=== PATIENT | male | born 1960 | race Caucasian/White ===

== ENCOUNTER 2019-02-25 21:45 | Inpatient (IN) ==
[2019-02-25] MEDS ORDERED: Haloperidol Lactate 5 MG/ML VIAL IM ONE (22:00)
[2019-02-25] MEDS ORDERED: *HR* LORazepam 2 MG/ML VIAL IM ONE (22:01)
[2019-02-25 22:35] LABS: Basophils % 0.1 %; Hematocrit 39.3 % (37.5-50.1); Hemoglobin 13.7 g/dL (12.9-16.9); Immature Granulocytes % 0.5 % (0-4); Lymphocytes # 1.8 K/mcL (0.6-4.6); Lymphocytes % 11.2 %; Mean Corpuscular HGB Conc 34.9 g/dL (31.6-35.5); Mean Corpuscular Hemoglobin 34.1 pg (28.0-33.3); Mean Corpuscular Volume 97.8 fL (83.0-100.0); Mean Platelet Volume 10.4 fL (9.4-12.4); Monocytes # 0.9 K/mcL (0.0-1.3); Monocytes % 5.8 %; Platelet Count 216 K/mcL (140-400); Red Blood Count 4.02 M/mcL (4.19-5.50); Red Cell Distribution Width 12.8 % (11.5-14.5); Segmented Neutrophils % 82.4 %; White Blood Count 15.7 K/mcL (4.3-11.1)
--- NOTE | 2019-02-25 22:45 | Emergency Department Note ---
Disposition Clinical Impression: NSTEMI (non-ST elevated myocardial infarction), Shock Rhabdomyolysis Qualifiers: Rhabdomyolysis type: non-traumatic Qualified Code(s): M62.82 - Rhabdomyolysis Acute renal failure Qualifiers: Acute renal failure type: with acute tubular necrosis Qualified Code(s): N17.0 - Acute kidney failure with tubular necrosis Disposition: Admitted As Inpatient Condition: Critical Referrals: NONE,PCP [Primary Care Provider] - Forms: ED Satisfaction Letter Time of Disposition: 01:29 Psych HPI - General Chief Complaint: ED Psychiatric Symptoms Stated Complaint: Psych Eval / drug use Time Seen by Provider: 02/25/19 21:46 Source: EMS Nursing Notes Reviewed: Yes Vital Signs Reviewed: Yes - History of Present Illness HPI Narrative: 59-year-old male presents emergency department for concern for talking out of his head per family. Patient has made the people around him feel unsafe at home due to the fact that his mental status being different. No known history of any psychiatric illnesses per EMS who brought him in. Patient denies any history of psychiatric illness. He does use methamphetamines. Is not taking anything recently. There was concern that patient was found next to a [place]. Patient s tated that he was exiting a [place] because he did not have anywhere to go. He does endorse some chest pain that happened 2 days ago, but nothing currently. No history of heart attack in the past. Patient denies any fevers, abdominal pain, shortness of breath. - Related Data Home Medications Medication Instructions Recorded Confirmed Elavil 02/25/19 02/25/19 Gabapentin PO 02/25/19 Lisinopril 02/25/19 02/25/19 Allergies Allergy/AdvReac Type Severity Reaction Status Date / Time No Known Allergies Allergy Verified 02/25/19 21:52 All systems ED: reviewed and negative except as stated. Review of Systems: As Per HPI Constitutional: Denies: fever Cardiovascular: Denies: chest pain Respiratory: Denies: cough, dyspnea Gastrointestinal: Reports: other (No rectal discomfort). Denies: abdominal pain, nausea, vomiting Genitourinary: Denies: urgency, dysuria, frequency Musculoskeletal: Denies: back pain Past Medical History - Past Medical History Attestation: Yes The following information was validated with the patient. Medical history: Reports: hypertension Psychiatric history: Reports: no psych history - Social History Smoking Status: Current every day smoker Smokeless Tobacco Status: No Drug use: Reports: marijuana Physical Exam - General Limitations: no limitations, other (Disheveled-appearing male) General appearance: alert - Head Head exam: normocephalic - Eye Eye exam: Present: EOMI - ENT ENT exam: mucous membranes dry - Neck Neck exam: Present: full ROM - Chest Chest inspection: Present: symmetric chest wall rise - Respiratory Respiratory exam: Present: normal lung sounds bilaterally. Absent: respiratory distress, accessory muscle use - Cardiovascular Cardiovascular exam: Present: regular rate, normal rhythm, normal heart sounds - Abdominal Exam Abdominal exam: Present: soft, Non-Tender. Absent: distention, guarding, rebound, rigidity - Extremities Exam Extremities exam: Present: normal capillary refill - Back Exam Back exam: Present: full ROM - Neurological Exam Neurological exam: Present: alert, other (Patient with no focal neurologic deficits, GCS 15) - Psychiatric Psychiatric exam: Present: normal affect, normal mood - Skin Skin exam: Present: warm, dry, intact Course Vital Signs Temperature 97.8 F 02/25/19 21:52 Pulse Rate 90 02/25/19 21:52 Respiratory Rate 20 02/25/19 21:52 Blood Pressure 105/60 02/25/19 21:52 O2 Sat by Pulse Oximetry 98 02/25/19 21:52 Temperature 97.8 F 02/25/19 21:52 Pulse Rate 88 02/26/19 01:06 Respiratory Rate 20 02/26/19 01:06 Blood Pressure 90/48 02/26/19 01:06 O2 Sat by Pulse Oximetry 100 02/26/19 01:06 Oxygen Delivery Oxygen Delivery Simple Mask Psych - MDM Narrative Medical decision making narrative: 59-year-old male presents emergency Department concern for being disheveled and altered per family. Family not at bedside, obtaining reports only from EMS. Patient with no complaints initially. Creatinine elevated at 4.5. Creatinine kinase elevated as well. Patient in mild rhabdomyolysis. Given 3 L of fluids in the emergency department. CTs reveal possible rectal wall thickening circumferentially, but patient not complaining of any rectal discomfort. Low suspicion for this at this time. Patient's blood pressure started to drop after his time here in the emergency department despite fluid administration. At that time, it was decided to place central line. Right internal jugular central venous catheter was placed. Chest x-ray post central line placement showed good placement, however, there was evidence of bilateral pulmonary vascular congestion concerning for edema. We started Levophed at that time. Patient to be admitted to the intensive care unit for further management. We discussed antimicrobial management, but not finding a source of infection at this time. Patient does have leukocytosis, however, there are multiple reasons to explain this as patient has several acute processes going on with his acute renal failure secondary to rhabdomyolysis as well as a possible recent and STEMI the could place a cardiogenic component to his shock as well. The ICU team will be monitoring the patient closely and will start antibiotics if they deem this necessary. Patient critical at time of admission, but mentating appropriately. Pertaining his airway at that time. Head CT 02/25/19 21:58 IMPRESSION: No acute intracranial abnormality. D/ / Bartolo Torres / Bartolo Torres Interpreting Provider: Bartolo Torres Abdomen/Pelvis CT 02/25/19 23:13 IMPRESSION: Rectal wall thickening circumferentially. Please correlate for symptoms of proctitis. Hepatic cirrhosis. No evidence of renal collecting system dilatation. Cholelithiasis and biliary sludge without evidence of cholecystitis. D/ / Bartolo Torres / Bartolo Torres Interpreting Provider: Bartolo Torres Chest X-Ray 02/26/19 00:57 IMPRESSION: Tip of the right internal jugular venous catheter in the lower SVC. No pneumothorax. Either patchy bilateral pneumonia present or moderate pulmonary vascular congestion. D/ / Jere Mccabe MD / Jere Mccabe MD Interpreting Provider: Jere Mccabe MD - Lab Data Result diagrams: 02/25/19 22:06 02/25/19 22:06 Lab Results 02/25/19 02/25/19 02/25/19 Range/Units 22:06 22:06 22:06 WBC 15.7 H (4.3-11.1) K/mcL RBC 4.02 L (4.19-5.50) M/mcL Hgb 13.7 (12.9-16.9) g/dL Hct 39.3 (37.5-50.1) % MCV 97.8 (83.0-100.0) fL MCH 34.1 H (28.0-33.3) pg MCHC 34.9 (31.6-35.5) g/dL RDW 12.8 (11.5-14.5) % Plt Count 216 (140-400) K/mcL MPV 10.4 (9.4-12.4) fL Immature Gran % 0.5 (0-4) % Seg Neutrophils % 82.4 % Lymphocytes % 11.2 % Monocytes % 5.8 % Eosinophils % 0.0 % Basophils % 0.1 % Neutrophils # 13.0 H (1.6-8.9) K/mcL Lymphocytes # 1.8 (0.6-4.6) K/mcL Monocytes # 0.9 (0.0-1.3) K/mcL Eosinophils # 0.0 (0.0-0.6) K/mcL Basophils # 0.0 (0.0-0.2) K/mcL Sodium 132 L (136-145) mEq/L Potassium 4.5 (3.5-5.1) mEq/L Chloride 97 L (98-107) mEq/L Carbon Dioxide 14 L (23-29) mEq/L BUN 86 H (6-20) mg/dL Creatinine 4.51 H (0.70-1.30) mg/dL Est GFR ( Amer) 16 L (> 60) Est GFR (Non-Af Amer) 13 L (> 60) BUN/Creatinine Ratio 19 (6-26) Glucose 82 (70-105) mg/dL Calculated Osmolality 299 (280-300) Calcium 9.2 (8.6-10.3) mg/dL Creatine Kinase 2984 H (30-223) Units/L Troponin I 0.71 H* (< 0.04) ng/mL TSH 0.465 (0.340-5.600) mcIU/mL Urine Color (Yellow) Urine Clarity (Clear) Urine pH (5.0-8.0) pH Units Ur Specific [place] (1.010-1.025) Urine Protein (Neg-Trace) mg/dL Urine Glucose (UA) (Normal) mg/dL Urine Ketones (Negative) mg/dL Urine Blood (Negative) Urine Nitrite (Negative) Urine Bilirubin (Negative) Urine Urobilinogen (Normal) mg/dL Ur Leukocyte Esterase (Negative) Urine Microscopic RBC (0-3) per hpf Urine Microscopic WBC (0-3) per hpf Ur Squamous Epith Cells (None-Few) per lpf Urine Bacteria (None-Few) per hpf Salicylates < 2.5 L (15.0-30.0) mg/dL Urine Opiates Screen (Jmkjrd=656) ng/mL Ur Buprenorphine Scrn (Cutoff=5) ng/mL Acetaminophen < 10 L (10-20) mcg/mL Ur Barbiturates Screen (Xyusrd=968) ng/mL Ur Phencyclidine Scrn (Cutoff=25) ng/mL Ur Amphetamines Screen (Zefygf=2194) ng/mL U Benzodiazepines Scrn (Mgkays=959) ng/mL Urine Cocaine Screen (Cutoff= 300) ng/mL U Marijuana (THC) Screen (Cutoff = 50) ng/mL Ur Drug Screen Interp Ethyl Alcohol < 10 (Less than 10) mg/dL 02/25/19 02/25/19 Range/Units 23:41 23:41 WBC (4.3-11.1) K/mcL RBC (4.19-5.50) M/mcL Hgb (12.9-16.9) g/dL Hct (37.5-50.1) % MCV (83.0-100.0) fL MCH (28.0-33.3) pg MCHC (31.6-35.5) g/dL RDW (11.5-14.5) % Plt Count (140-400) K/mcL MPV (9.4-12.4) fL Immature Gran % (0-4) % Seg Neutrophils % % Lymphocytes % % Monocytes % % Eosinophils % % Basophils % % Neutrophils # (1.6-8.9) K/mcL Lymphocytes # (0.6-4.6) K/mcL Monocytes # (0.0-1.3) K/mcL Eosinophils # (0.0-0.6) K/mcL Basophils # (0.0-0.2) K/mcL Sodium (136-145) mEq/L Potassium (3.5-5.1) mEq/L Chloride (98-107) mEq/L Carbon Dioxide (23-29) mEq/L BUN (6-20) mg/dL Creatinine (0.70-1.30) mg/dL Est GFR ( Amer) (> 60) Est GFR (Non-Af Amer) (> 60) BUN/Creatinine Ratio (6-26) Glucose (70-105) mg/dL Calculated Osmolality (280-300) Calcium (8.6-10.3) mg/dL Creatine Kinase (30-223) Units/L Troponin I (< 0.04) ng/mL TSH (0.340-5.600) mcIU/mL Urine Color Dark Yellow (Yellow) Urine Clarity Cloudy A (Clear) Urine pH 5.0 (5.0-8.0) pH Units Ur Specific [place] 1.026 H (1.010-1.025) Urine Protein 30 H (Neg-Trace) mg/dL Urine Glucose (UA) Normal (Normal) mg/dL Urine Ketones Trace H (Negative) mg/dL Urine Blood Large H (Negative) Urine Nitrite Negative (Negative) Urine Bilirubin Moderate H (Negative) Urine Urobilinogen Normal (Normal) mg/dL Ur Leukocyte Esterase Trace H (Negative) Urine Microscopic RBC 5-15 H (0-3) per hpf Urine Microscopic WBC 0-3 (0-3) per hpf Ur Squamous Epith Cells Many H (None-Few) per lpf Urine Bacteria None Seen (None-Few) per hpf Salicylates (15.0-30.0) mg/dL Urine Opiates Screen Negative (Ctxook=605) ng/mL Ur Buprenorphine Scrn Positive H (Cutoff=5) ng/mL Acetaminophen (10-20) mcg/mL Ur Barbiturates Screen Negative (Yddgce=249) ng/mL Ur Phencyclidine Scrn Negative (Cutoff=25) ng/mL Ur Amphetamines Screen Positive H (Kagmla=1848) ng/mL U Benzodiazepines Scrn Negative (Arpjwq=728) ng/mL Urine Cocaine Screen Negative (Cutoff= 300) ng/mL U Marijuana (THC) Screen Positive H (Cutoff = 50) ng/mL Ur Drug Screen Interp See Below Ethyl Alcohol (Less than 10) mg/dL - EKG Data EKG attestation: Yes I reviewed and interpreted this EKG. EKG results narrative: 22:29 Heart rate 83 bpm, TN interval 146 ms, QRS duration 83 ms, QT 384 ms, normal axis. Sinus rhythm with nonspecific T-wave flattening in lead 3. Psychiatric Medical Clearance - Medical Clearance Checklist Medical History: No Social History Section defined Current Vitals: Last Vital Signs Temp 97.8 F 02/25/19 21:52 Pulse 88 02/26/19 01:06 Resp 20 02/26/19 01:06 BP 90/48 02/26/19 01:06 Pulse Ox 100 02/26/19 01:06 Psychiatric Lab Panel: Drug Levels and Toxicity 02/25/19 02/25/19 22:06 23:41 Urine Opiates Screen Negative Acetaminophen < 10 L Ur Barbiturates Screen Negative Ur Phencyclidine Scrn Negative Ur Amphetamines Screen Positive H U Benzodiazepines Scrn Negative Urine Cocaine Screen Negative U Marijuana (THC) Screen Positive H Ethyl Alcohol < 10 Abnormal Labs: Abnormal lab results WBC 15.7 K/mcL (4.3-11.1) H 02/25/19 22:06 RBC 4.02 M/mcL (4.19-5.50) L 02/25/19 22:06 MCH 34.1 pg (28.0-33.3) H 02/25/19 22:06 Neutrophils # 13.0 K/mcL (1.6-8.9) H 02/25/19 22:06 Sodium 132 mEq/L (136-145) L 02/25/19 22:06 Chloride 97 mEq/L (98-107) L 02/25/19 22:06 Carbon Dioxide 14 mEq/L (23-29) L 02/25/19 22:06 BUN 86 mg/dL (6-20) H 02/25/19 22:06 Creatinine 4.51 mg/dL (0.70-1.30) H 02/25/19 22:06 Est GFR ( Amer) 16 (> 60) L 02/25/19 22:06 Est GFR (Non-Af Amer) 13 (> 60) L 02/25/19 22:06 Creatine Kinase 2984 Units/L (30-223) H 02/25/19 22:06 Troponin I 0.71 ng/mL (< 0.04) H* 02/25/19 22:06 Urine Clarity Cloudy (Clear) A 02/25/19 23:41 Ur Specific [place] 1.026 (1.010-1.025) H 02/25/19 23:41 Urine Protein 30 mg/dL (Neg-Trace) H 02/25/19 23:41 Urine Ketones Trace mg/dL (Negative) H 02/25/19 23:41 Urine Blood Large (Negative) H 02/25/19 23:41 Urine Bilirubin Moderate (Negative) H 02/25/19 23:41 Ur Leukocyte Esterase Trace (Negative) H 02/25/19 23:41 Urine Microscopic RBC 5-15 per hpf (0-3) H 02/25/19 23:41 Ur Squamous Epith Cells Many per lpf (None-Few) H 02/25/19 23:41 Salicylates < 2.5 mg/dL (15.0-30.0) L 02/25/19 22:06 Ur Buprenorphine Scrn Positive ng/mL (Cutoff=5) H 02/25/19 23:41 Acetaminophen < 10 mcg/mL (10-20) L 02/25/19 22:06 Ur Amphetamines Screen Positive ng/mL (Hpjzxj=6428) H 02/25/19 23:41 U Marijuana (THC) Screen Positive ng/mL (Cutoff = 50) H 02/25/19 23:41 Statement of Medical Clearance: I have evaluated the patient, reviewed diagnostic information, and certify that the patient's medical condition is sufficiently stable that transfer to the psychiatric unit does not pose a significant risk of deterioration.
[2019-02-25 23:00] LABS: Acetaminophen < 10 mcg/mL (10-20); Ethanol < 10 mg/dL (Less than 10); Salicylate < 2.5 mg/dL (15.0-30.0)
[2019-02-25 23:01] LABS: BUN/Creatinine Ratio 19 (6-26); Blood Urea Nitrogen 86 mg/dL (6-20); Calcium 9.2 mg/dL (8.6-10.3); Carbon Dioxide 14 mEq/L (23-29); Chloride 97 mEq/L (98-107); Glucose 82 mg/dL (70-105); Osmolality,Calculated 299 (280-300); Potassium 4.5 mEq/L (3.5-5.1); Sodium 132 mEq/L (136-145); eGFR For African Americans 16 (> 60); eGFR For Non-African Americans 13 (> 60)
[2019-02-25] MEDS ORDERED: 0.9 % Sodium Chloride 1,000 ML IVC ONE ×3 (23:11→23:42)
[2019-02-25 23:22] LABS: Creatine Kinase 2984 Units/L (30-223)
[2019-02-25 23:57] LABS: Bilirubin,Urine Moderate (Negative); Blood,Urine Large (Negative); Clarity,Urine Cloudy (Clear); Color,Urine Dark Yellow (Yellow); Glucose,Urine (UA) Normal (Normal); Ketones,Urine Trace mg/dL (Negative); Leukocyte Esterase,Urine Trace (Negative); Nitrite,Urine Negative (Negative); Protein,Urine 30 mg/dL (Neg-Trace); Specific Gravity,Urine 1.026 (1.010-1.025); Urobilinogen,Urine Normal (Normal)
[2019-02-26 00:02] LABS: Bacteria,Urine None Seen per hpf (None-Few); Squamous Epithelial Cell,Urine Many per lpf (None-Few); WBC,Urine 0-3 per hpf (0-3)
[2019-02-26 00:13] LABS: Troponin I 0.71 ng/mL (< 0.04)
[2019-02-26 00:13] LABS: Amphetamine Screen,Urine Positive ng/mL (Cutoff=1000); Barbiturate Screen,Urine Negative ng/mL (Cutoff=200); Benzodiazepines Screen,Urine Negative ng/mL (Cutoff=200); Cannabinoid Screen,Urine Positive ng/mL (Cutoff = 50); Cocaine Screen,Urine Negative ng/mL (Cutoff= 300); Opiate Screen,Urine Negative ng/mL (Cutoff=300); Phencyclidine Screen,Urine Negative ng/mL (Cutoff=25)
--- NOTE | 2019-02-26 00:17 | Emergency Department Note ---
Disposition Clinical Impression: Elevated troponin Rhabdomyolysis Qualifiers: Rhabdomyolysis type: non-traumatic Qualified Code(s): M62.82 - Rhabdomyolysis Acute renal failure Qualifiers: Acute renal failure type: with acute tubular necrosis Qualified Code(s): N17.0 - Acute kidney failure with tubular necrosis Disposition: Admitted As Inpatient Condition: Fair Referrals: NONE,PCP [Primary Care Provider] - Forms: ED Satisfaction Letter Time of Disposition: 00:18 General Adult HPI - General Chief complaint: ED Psychiatric Symptoms Stated complaint: Psych Eval / drug use Time Seen by Provider: 02/25/19 21:46 Source: EMS Limitations: no limitations, other (Disheveled-appearing male) - History of Present Illness Pain Scale: 0 - Related Data Home Medications Medication Instructions Recorded Confirmed Elavil 02/25/19 02/25/19 Gabapentin PO 02/25/19 Lisinopril 02/25/19 02/25/19 Allergies Allergy/AdvReac Type Severity Reaction Status Date / Time No Known Allergies Allergy Verified 02/25/19 21:52 Constitutional: Denies: fever Cardiovascular: Denies: chest pain Respiratory: Denies: cough, dyspnea Gastrointestinal: Denies: abdominal pain, nausea, vomiting Genitourinary: Denies: urgency, dysuria, frequency Musculoskeletal: Denies: back pain Past Medical History - Past Medical History Medical history: Reports: hypertension Psychiatric history: Reports: no psych history - Social History Smoking Status: Current every day smoker Smokeless Tobacco Status: No Drug use: Reports: marijuana Physical Exam - General Limitations: no limitations, other (Disheveled-appearing male) General appearance: alert Course - Consultations Consultation #1: discussed case with Dr. Churchill and does not have a recommendation for heparin vs no heparin. If his hemoglobin is stable and has no active bleed and is in his 50s than does not see an iminant danger for starting heparin. WE will trest with heparin Time: 00:51 Vital Signs Temperature 97.8 F 02/25/19 21:52 Pulse Rate 90 02/25/19 21:52 Respiratory Rate 20 02/25/19 21:52 Blood Pressure 105/60 02/25/19 21:52 O2 Sat by Pulse Oximetry 98 02/25/19 21:52 Temperature 97.8 F 02/25/19 21:52 Pulse Rate 88 02/26/19 00:47 Respiratory Rate 02/26/19 00:47 Blood Pressure 68/49 02/26/19 00:47 O2 Sat by Pulse Oximetry 94 02/26/19 00:47 Oxygen Delivery Oxygen Delivery Simple Mask Medical Decision Making - Lab Data Result diagrams: 02/25/19 22:06 02/25/19 22:06 Lab Results 02/25/19 02/25/19 02/25/19 Range/Units 22:06 22:06 22:06 WBC 15.7 H (4.3-11.1) K/mcL RBC 4.02 L (4.19-5.50) M/mcL Hgb 13.7 (12.9-16.9) g/dL Hct 39.3 (37.5-50.1) % MCV 97.8 (83.0-100.0) fL MCH 34.1 H (28.0-33.3) pg MCHC 34.9 (31.6-35.5) g/dL RDW 12.8 (11.5-14.5) % Plt Count 216 (140-400) K/mcL MPV 10.4 (9.4-12.4) fL Immature Gran % 0.5 (0-4) % Seg Neutrophils % 82.4 % Lymphocytes % 11.2 % Monocytes % 5.8 % Eosinophils % 0.0 % Basophils % 0.1 % Neutrophils # 13.0 H (1.6-8.9) K/mcL Lymphocytes # 1.8 (0.6-4.6) K/mcL Monocytes # 0.9 (0.0-1.3) K/mcL Eosinophils # 0.0 (0.0-0.6) K/mcL Basophils # 0.0 (0.0-0.2) K/mcL Sodium 132 L (136-145) mEq/L Potassium 4.5 (3.5-5.1) mEq/L Chloride 97 L (98-107) mEq/L Carbon Dioxide 14 L (23-29) mEq/L BUN 86 H (6-20) mg/dL Creatinine 4.51 H (0.70-1.30) mg/dL Est GFR ( Amer) 16 L (> 60) Est GFR (Non-Af Amer) 13 L (> 60) BUN/Creatinine Ratio 19 (6-26) Glucose 82 (70-105) mg/dL Calculated Osmolality 299 (280-300) Calcium 9.2 (8.6-10.3) mg/dL Creatine Kinase 2984 H (30-223) Units/L Troponin I 0.71 H* (< 0.04) ng/mL TSH 0.465 (0.340-5.600) mcIU/mL Urine Color (Yellow) Urine Clarity (Clear) Urine pH (5.0-8.0) pH Units Ur Specific [place] (1.010-1.025) Urine Protein (Neg-Trace) mg/dL Urine Glucose (UA) (Normal) mg/dL Urine Ketones (Negative) mg/dL Urine Blood (Negative) Urine Nitrite (Negative) Urine Bilirubin (Negative) Urine Urobilinogen (Normal) mg/dL Ur Leukocyte Esterase (Negative) Urine Microscopic RBC (0-3) per hpf Urine Microscopic WBC (0-3) per hpf Ur Squamous Epith Cells (None-Few) per lpf Urine Bacteria (None-Few) per hpf Salicylates < 2.5 L (15.0-30.0) mg/dL Urine Opiates Screen (Hcecex=194) ng/mL Ur Buprenorphine Scrn (Cutoff=5) ng/mL Acetaminophen < 10 L (10-20) mcg/mL Ur Barbiturates Screen (Bpiezo=746) ng/mL Ur Phencyclidine Scrn (Cutoff=25) ng/mL Ur Amphetamines Screen (Jyvcrb=9939) ng/mL U Benzodiazepines Scrn (Dlnrhd=215) ng/mL Urine Cocaine Screen (Cutoff= 300) ng/mL U Marijuana (THC) Screen (Cutoff = 50) ng/mL Ur Drug Screen Interp Ethyl Alcohol < 10 (Less than 10) mg/dL 02/25/19 02/25/19 Range/Units 23:41 23:41 WBC (4.3-11.1) K/mcL RBC (4.19-5.50) M/mcL Hgb (12.9-16.9) g/dL Hct (37.5-50.1) % MCV (83.0-100.0) fL MCH (28.0-33.3) pg MCHC (31.6-35.5) g/dL RDW (11.5-14.5) % Plt Count (140-400) K/mcL MPV (9.4-12.4) fL Immature Gran % (0-4) % Seg Neutrophils % % Lymphocytes % % Monocytes % % Eosinophils % % Basophils % % Neutrophils # (1.6-8.9) K/mcL Lymphocytes # (0.6-4.6) K/mcL Monocytes # (0.0-1.3) K/mcL Eosinophils # (0.0-0.6) K/mcL Basophils # (0.0-0.2) K/mcL Sodium (136-145) mEq/L Potassium (3.5-5.1) mEq/L Chloride (98-107) mEq/L Carbon Dioxide (23-29) mEq/L BUN (6-20) mg/dL Creatinine (0.70-1.30) mg/dL Est GFR ( Amer) (> 60) Est GFR (Non-Af Amer) (> 60) BUN/Creatinine Ratio (6-26) Glucose (70-105) mg/dL Calculated Osmolality (280-300) Calcium (8.6-10.3) mg/dL Creatine Kinase (30-223) Units/L Troponin I (< 0.04) ng/mL TSH (0.340-5.600) mcIU/mL Urine Color Dark Yellow (Yellow) Urine Clarity Cloudy A (Clear) Urine pH 5.0 (5.0-8.0) pH Units Ur Specific [place] 1.026 H (1.010-1.025) Urine Protein 30 H (Neg-Trace) mg/dL Urine Glucose (UA) Normal (Normal) mg/dL Urine Ketones Trace H (Negative) mg/dL Urine Blood Large H (Negative) Urine Nitrite Negative (Negative) Urine Bilirubin Moderate H (Negative) Urine Urobilinogen Normal (Normal) mg/dL Ur Leukocyte Esterase Trace H (Negative) Urine Microscopic RBC 5-15 H (0-3) per hpf Urine Microscopic WBC 0-3 (0-3) per hpf Ur Squamous Epith Cells Many H (None-Few) per lpf Urine Bacteria None Seen (None-Few) per hpf Salicylates (15.0-30.0) mg/dL Urine Opiates Screen Negative (Mlnzxf=281) ng/mL Ur Buprenorphine Scrn Positive H (Cutoff=5) ng/mL Acetaminophen (10-20) mcg/mL Ur Barbiturates Screen Negative (Tuwqjq=425) ng/mL Ur Phencyclidine Scrn Negative (Cutoff=25) ng/mL Ur Amphetamines Screen Positive H (Bcfvch=4960) ng/mL U Benzodiazepines Scrn Negative (Hsxoxc=031) ng/mL Urine Cocaine Screen Negative (Cutoff= 300) ng/mL U Marijuana (THC) Screen Positive H (Cutoff = 50) ng/mL Ur Drug Screen Interp See Below Ethyl Alcohol (Less than 10) mg/dL Attestation Statement - Attestation Attestation: I reviewed the residents documentation and agree with the residents assessment and plan of care. I have personally had face to face time with the patient. (Brief History, Brief Exam, and MDM) I personally supervised and was present for the gaitan/critical portions of the following procedures completed by the resident: EKG 59 year old male presents to the ED with complaints of pysch issues with acute visual hallucinations secondary to chronic meth abuse. Susan appers to be very ill on labs, with a rhabdo and a CPK of >2000, and acute renal failure of 4.0, and a troponin of .71. Mundo this is secondary to rhabdomyolsis however we will consult to cards about heparinizations and recheck vitals and assess for need of central line if unstable. Susan may be candidate for the ICU.
[2019-02-26 00:22] LABS: Thyroid Stimulating Hormone 0.465 mcIU/mL (0.340-5.600)
[2019-02-26] MEDS ORDERED: *HR* Heparin 5,000 UNIT/ML VIAL IVP ONE (00:28)
[2019-02-26] MEDS ORDERED: Aspirin 81 MG TAB.CHEW PO STA (00:28)
[2019-02-26] MEDS ORDERED: *HR* Heparin 5,000 UNIT/ML VIAL IVP PRN (00:28)
[2019-02-26] MEDS ORDERED: *HR* HYDROmorphone (PF) 1 MG/ML SYRINGE IVP ONE (00:29)
[2019-02-26] MEDS ORDERED: *HR* LORazepam 2 MG/ML VIAL IVP ONE ×3 (00:29→02:17)
[2019-02-26] MEDS ORDERED: *HR* LORazepam 2 MG/ML VIAL ONE ×2 (00:32→02:19)
[2019-02-26] MEDS: Norepinephrine 4 MG in D5% in Water 250 ML IVC SCH ×4 (01:19→13:35)
[2019-02-26] MEDS: Heparin 25,000 UNIT/250 ML D5W 25,000 UNIT/250 ML IV.SOLN IVC SCH ×2 (01:25→21:35)
[2019-02-26] MEDS ORDERED: Azithromycin 500 MG in D5% in Water 250 ML IVPB ONE (01:32)
[2019-02-26] MEDS ORDERED: Piperacillin/Tazobactam 3.375 GM in 0.9 % Sodium Chloride Mini Bag 100 ML IVP ONE (01:32)
--- NOTE | 2019-02-26 01:33 | Emergency Department Note ---
Disposition Clinical Impression: NSTEMI (non-ST elevated myocardial infarction), Shock Rhabdomyolysis Qualifiers: Rhabdomyolysis type: non-traumatic Qualified Code(s): M62.82 - Rhabdomyolysis Acute renal failure Qualifiers: Acute renal failure type: with acute tubular necrosis Qualified Code(s): N17.0 - Acute kidney failure with tubular necrosis Pneumonia Qualifiers: Pneumonia type: due to unspecified organism Laterality: unspecified laterality Lung location: unspecified part of lung Qualified Code(s): J18.9 - Pneumonia, unspecified organism Disposition: Admitted As Inpatient Condition: Critical Referrals: NONE,PCP [Primary Care Provider] - Forms: ED Satisfaction Letter Time of Disposition: 01:34 Psych HPI - General Chief Complaint: ED Psychiatric Symptoms Stated Complaint: Psych Eval / drug use Time Seen by Provider: 02/25/19 21:46 Source: EMS - History of Present Illness HPI Narrative: Note created for procedure note - Related Data Home Medications Medication Instructions Recorded Confirmed Elavil 02/25/19 02/25/19 Gabapentin PO 02/25/19 Lisinopril 02/25/19 02/25/19 Allergies Allergy/AdvReac Type Severity Reaction Status Date / Time No Known Allergies Allergy Verified 02/25/19 21:52 Constitutional: Denies: fever Cardiovascular: Denies: chest pain Respiratory: Denies: cough, dyspnea Gastrointestinal: Reports: other (No rectal discomfort). Denies: abdominal pain, nausea, vomiting Genitourinary: Denies: urgency, dysuria, frequency Musculoskeletal: Denies: back pain Past Medical History - Past Medical History Medical history: Reports: hypertension Psychiatric history: Reports: no psych history - Social History Smoking Status: Current every day smoker Smokeless Tobacco Status: No Drug use: Reports: marijuana Physical Exam - General Limitations: no limitations, other (Disheveled-appearing male) General appearance: alert Course Vital Signs Temperature 97.8 F 02/25/19 21:52 Pulse Rate 90 02/25/19 21:52 Respiratory Rate 20 02/25/19 21:52 Blood Pressure 105/60 02/25/19 21:52 O2 Sat by Pulse Oximetry 98 02/25/19 21:52 Temperature 97.8 F 02/25/19 21:52 Pulse Rate 88 02/26/19 01:06 Respiratory Rate 20 02/26/19 01:06 Blood Pressure 90/48 02/26/19 01:06 O2 Sat by Pulse Oximetry 100 02/26/19 01:06 Oxygen Delivery Oxygen Delivery Simple Mask Procedures - Central Line Placement Right IJ Central Line Inserted*: Yes Central Line Catheter Replacement*: Yes Central Line Insertion: emergent Consent Obtained: written consent Procedural Pause: verify patient name and date of , timeout performed per policy, keena and assess the site, assemble equipment and verify supplies, perform hand hygiene Patient Placed on Monitor/Pulse Ox: Yes During the Procedure: clinician is wearing sterile gloves, cap, mask,& gown during insertion, sterile field and sterile technique are maintained, patient's face is covered with drape or mask and wearing a cap, everyone in room is wearing a mask Central Line Prep: sterile drapes applied Prep the Procedure Site: apply chloraprep to the skin using a back and forth scrubbing motion Local Anesthetic: lidocaine 1%, with epi Amount of anesthesia used (mL): 3 Ultrasound Used for Placement: Yes Central Line Lumen Inserted: triple Post Procedure: sutured in place, good blood return, all ports aspirated, flushed, capped, sterile dressing applied, guide wire removed and visualized, dressing is dated Post Procedure X-Ray: tip of catheter in good position, no pneumothorax seen Patient Tolerated Procedure: well, no complications Date: 02/26/19 Psych - MDM Narrative Medical decision making narrative: Update: Patient has possible faster congestion versus pneumonia on chest x-ray. We will go ahead and start Zosyn and azithromycin at this time. - Lab Data Result diagrams: 02/25/19 22:06 02/25/19 22:06 Lab Results 02/25/19 02/25/19 02/25/19 Range/Units 22:06 22:06 22:06 WBC 15.7 H (4.3-11.1) K/mcL RBC 4.02 L (4.19-5.50) M/mcL Hgb 13.7 (12.9-16.9) g/dL Hct 39.3 (37.5-50.1) % MCV 97.8 (83.0-100.0) fL MCH 34.1 H (28.0-33.3) pg MCHC 34.9 (31.6-35.5) g/dL RDW 12.8 (11.5-14.5) % Plt Count 216 (140-400) K/mcL MPV 10.4 (9.4-12.4) fL Immature Gran % 0.5 (0-4) % Seg Neutrophils % 82.4 % Lymphocytes % 11.2 % Monocytes % 5.8 % Eosinophils % 0.0 % Basophils % 0.1 % Neutrophils # 13.0 H (1.6-8.9) K/mcL Lymphocytes # 1.8 (0.6-4.6) K/mcL Monocytes # 0.9 (0.0-1.3) K/mcL Eosinophils # 0.0 (0.0-0.6) K/mcL Basophils # 0.0 (0.0-0.2) K/mcL Sodium 132 L (136-145) mEq/L Potassium 4.5 (3.5-5.1) mEq/L Chloride 97 L (98-107) mEq/L Carbon Dioxide 14 L (23-29) mEq/L BUN 86 H (6-20) mg/dL Creatinine 4.51 H (0.70-1.30) mg/dL Est GFR ( Amer) 16 L (> 60) Est GFR (Non-Af Amer) 13 L (> 60) BUN/Creatinine Ratio 19 (6-26) Glucose 82 (70-105) mg/dL Calculated Osmolality 299 (280-300) Calcium 9.2 (8.6-10.3) mg/dL Creatine Kinase 2984 H (30-223) Units/L Troponin I 0.71 H* (< 0.04) ng/mL TSH 0.465 (0.340-5.600) mcIU/mL Urine Color (Yellow) Urine Clarity (Clear) Urine pH (5.0-8.0) pH Units Ur Specific [place] (1.010-1.025) Urine Protein (Neg-Trace) mg/dL Urine Glucose (UA) (Normal) mg/dL Urine Ketones (Negative) mg/dL Urine Blood (Negative) Urine Nitrite (Negative) Urine Bilirubin (Negative) Urine Urobilinogen (Normal) mg/dL Ur Leukocyte Esterase (Negative) Urine Microscopic RBC (0-3) per hpf Urine Microscopic WBC (0-3) per hpf Ur Squamous Epith Cells (None-Few) per lpf Urine Bacteria (None-Few) per hpf Salicylates < 2.5 L (15.0-30.0) mg/dL Urine Opiates Screen (Jrekhr=091) ng/mL Ur Buprenorphine Scrn (Cutoff=5) ng/mL Acetaminophen < 10 L (10-20) mcg/mL Ur Barbiturates Screen (Rkefis=200) ng/mL Ur Phencyclidine Scrn (Cutoff=25) ng/mL Ur Amphetamines Screen (Oavnyx=5343) ng/mL U Benzodiazepines Scrn (Ofoqmc=306) ng/mL Urine Cocaine Screen (Cutoff= 300) ng/mL U Marijuana (THC) Screen (Cutoff = 50) ng/mL Ur Drug Screen Interp Ethyl Alcohol < 10 (Less than 10) mg/dL 02/25/19 02/25/19 Range/Units 23:41 23:41 WBC (4.3-11.1) K/mcL RBC (4.19-5.50) M/mcL Hgb (12.9-16.9) g/dL Hct (37.5-50.1) % MCV (83.0-100.0) fL MCH (28.0-33.3) pg MCHC (31.6-35.5) g/dL RDW (11.5-14.5) % Plt Count (140-400) K/mcL MPV (9.4-12.4) fL Immature Gran % (0-4) % Seg Neutrophils % % Lymphocytes % % Monocytes % % Eosinophils % % Basophils % % Neutrophils # (1.6-8.9) K/mcL Lymphocytes # (0.6-4.6) K/mcL Monocytes # (0.0-1.3) K/mcL Eosinophils # (0.0-0.6) K/mcL Basophils # (0.0-0.2) K/mcL Sodium (136-145) mEq/L Potassium (3.5-5.1) mEq/L Chloride (98-107) mEq/L Carbon Dioxide (23-29) mEq/L BUN (6-20) mg/dL Creatinine (0.70-1.30) mg/dL Est GFR ( Amer) (> 60) Est GFR (Non-Af Amer) (> 60) BUN/Creatinine Ratio (6-26) Glucose (70-105) mg/dL Calculated Osmolality (280-300) Calcium (8.6-10.3) mg/dL Creatine Kinase (30-223) Units/L Troponin I (< 0.04) ng/mL TSH (0.340-5.600) mcIU/mL Urine Color Dark Yellow (Yellow) Urine Clarity Cloudy A (Clear) Urine pH 5.0 (5.0-8.0) pH Units Ur Specific [place] 1.026 H (1.010-1.025) Urine Protein 30 H (Neg-Trace) mg/dL Urine Glucose (UA) Normal (Normal) mg/dL Urine Ketones Trace H (Negative) mg/dL Urine Blood Large H (Negative) Urine Nitrite Negative (Negative) Urine Bilirubin Moderate H (Negative) Urine Urobilinogen Normal (Normal) mg/dL Ur Leukocyte Esterase Trace H (Negative) Urine Microscopic RBC 5-15 H (0-3) per hpf Urine Microscopic WBC 0-3 (0-3) per hpf Ur Squamous Epith Cells Many H (None-Few) per lpf Urine Bacteria None Seen (None-Few) per hpf Salicylates (15.0-30.0) mg/dL Urine Opiates Screen Negative (Disxzm=119) ng/mL Ur Buprenorphine Scrn Positive H (Cutoff=5) ng/mL Acetaminophen (10-20) mcg/mL Ur Barbiturates Screen Negative (Uzxlbg=497) ng/mL Ur Phencyclidine Scrn Negative (Cutoff=25) ng/mL Ur Amphetamines Screen Positive H (Hnnyod=1240) ng/mL U Benzodiazepines Scrn Negative (Ybyhjj=554) ng/mL Urine Cocaine Screen Negative (Cutoff= 300) ng/mL U Marijuana (THC) Screen Positive H (Cutoff = 50) ng/mL Ur Drug Screen Interp See Below Ethyl Alcohol (Less than 10) mg/dL Psychiatric Medical Clearance - Medical Clearance Checklist Medical History: No Social History Section defined Current Vitals: Last Vital Signs Temp 97.8 F 02/25/19 21:52 Pulse 88 02/26/19 01:06 Resp 20 02/26/19 01:06 BP 90/48 02/26/19 01:06 Pulse Ox 100 02/26/19 01:06 Psychiatric Lab Panel: Drug Levels and Toxicity 02/25/19 02/25/19 22:06 23:41 Urine Opiates Screen Negative Acetaminophen < 10 L Ur Barbiturates Screen Negative Ur Phencyclidine Scrn Negative Ur Amphetamines Screen Positive H U Benzodiazepines Scrn Negative Urine Cocaine Screen Negative U Marijuana (THC) Screen Positive H Ethyl Alcohol < 10 Abnormal Labs: Abnormal lab results WBC 15.7 K/mcL (4.3-11.1) H 02/25/19 22:06 RBC 4.02 M/mcL (4.19-5.50) L 02/25/19 22:06 MCH 34.1 pg (28.0-33.3) H 02/25/19 22:06 Neutrophils # 13.0 K/mcL (1.6-8.9) H 02/25/19 22:06 Sodium 132 mEq/L (136-145) L 02/25/19 22:06 Chloride 97 mEq/L (98-107) L 02/25/19 22:06 Carbon Dioxide 14 mEq/L (23-29) L 02/25/19 22:06 BUN 86 mg/dL (6-20) H 02/25/19 22:06 Creatinine 4.51 mg/dL (0.70-1.30) H 02/25/19 22:06 Est GFR ( Amer) 16 (> 60) L 02/25/19 22:06 Est GFR (Non-Af Amer) 13 (> 60) L 02/25/19 22:06 Creatine Kinase 2984 Units/L (30-223) H 02/25/19 22:06 Troponin I 0.71 ng/mL (< 0.04) H* 02/25/19 22:06 Urine Clarity Cloudy (Clear) A 02/25/19 23:41 Ur Specific [place] 1.026 (1.010-1.025) H 02/25/19 23:41 Urine Protein 30 mg/dL (Neg-Trace) H 02/25/19 23:41 Urine Ketones Trace mg/dL (Negative) H 02/25/19 23:41 Urine Blood Large (Negative) H 02/25/19 23:41 Urine Bilirubin Moderate (Negative) H 02/25/19 23:41 Ur Leukocyte Esterase Trace (Negative) H 02/25/19 23:41 Urine Microscopic RBC 5-15 per hpf (0-3) H 02/25/19 23:41 Ur Squamous Epith Cells Many per lpf (None-Few) H 02/25/19 23:41 Salicylates < 2.5 mg/dL (15.0-30.0) L 02/25/19 22:06 Ur Buprenorphine Scrn Positive ng/mL (Cutoff=5) H 02/25/19 23:41 Acetaminophen < 10 mcg/mL (10-20) L 02/25/19 22:06 Ur Amphetamines Screen Positive ng/mL (Xdvyju=1156) H 02/25/19 23:41 U Marijuana (THC) Screen Positive ng/mL (Cutoff = 50) H 02/25/19 23:41 Statement of Medical Clearance: I have evaluated the patient, reviewed diagnostic information, and certify that the patient's medical condition is sufficiently stable that transfer to the psychiatric unit does not pose a significant risk of deterioration.
[2019-02-26] MEDS ORDERED: Naloxone 0.4 MG/ML INJ IVP PRN (02:09)
[2019-02-26] MEDS ORDERED: Ondansetron 4 MG/2 ML VIAL IVP PRN (02:09)
[2019-02-26] MEDS ORDERED: 0.9 % Sodium Chloride 1,000 ML IVC SCH (02:15)
[2019-02-26] MEDS ORDERED: Ipratropium/Albuterol Neb 3 ML IH PRN (02:36)
--- NOTE | 2019-02-26 02:41 | Internal Med History&Physical ---
<Juan Singer - Last Filed: 02/26/19 04:10> Date of Encounter: 02/26/19 Time of Encounter: 02:20 Internal Medicine - H&P: HPI Chief complaint: Encephalopathy Admitted From: Emergency Dept Plans for Post Hospital Care: Home History of present illness: Mr. Tomlinson is a 59 year old male with history of psychiatric concerns and drug use who presented to the hospital via EMS due to concerns of neurological and irrational talking. At the time of examination the patient is heavily sedated and is unable to answer majority of the questions. He is apparently a heavy user of methamphetamines and other drugs, and also has a history of psychiatric illness. Apparently the patient was [place] to [place], and mentioned that he did not have anywhere else to go. At that time he was confused and was not m aking a lot of sense. He was brought to the emergency department and according to emergency physician he did at that time endorsed some chest pain which happened approximately 2 days ago but that resolved. He is no longer having any acute complaints. At this time he admits to marijuana use, however denies other drug use. In the ED, the patient had labs that demonstrated a WBC of 15.7, sodium 132, potassium 4.5, chloride 97, CO2 14, BUN 86, Creatinine 4.51, Anion gap 21, CK 2984, Trop 0.71, BNP 142, and TSH 0.465. He had a head CT that was negative for intracranial abnormality. CT of the abdomen and pelvis demonstrated rectal wall thickening circumferentially , hepatic cirrhosis and cholelithiasis and biliary sludge without evidence of cholecystitis. Chest x-ray was taken following in sertion of CBC and demonstrated patchy bilateral infiltrates suspicious for pneumonia versus pulmonary vascular congestion. The patient initially had a temperature of 97.8, heart rate 90, respiratory rate 20, blood pressure 105/60, however quickly became hypotensive requiring rapid infusion of 3L fluid and subsequently the initiation of levophed for pressure support. Because of agitation, he required sedation with ativan and haldol. He will be admitted to the ICU for workup and management of Septic shock. Patient is unable to provide family history at this time. Past Med Surg Social Fam HX - Past Medical History Medical history: hypertension Psychiatric history: no psych history - Past Surgical History Additional surgical history: back surgery, ankle surgery - Social History Smoking Status: Current every day smoker Smokeless Tobacco Status: No Drug use: marijuana Internal Medicine - H&P: Meds Elavil 02/25/19 [History] Gabapentin PO 02/25/19 [History] Lisinopril 02/25/19 [History] Allergy/AdvReac Type Severity Reaction Status Date / Time No Known Allergies Allergy Verified 02/25/19 21:52 ROS unobtainable: due to mental status All Systems PM: A 10-system review of systems was performed and is negative for pertinent findings except as documented above in the HPI. - Constitutional Vitals: Temp Pulse Resp BP Pulse Ox 97.0 F L 99 17 105/57 92 02/26/19 02:00 02/26/19 02:00 02/26/19 02:00 02/26/19 02:00 02/26/19 02:00 Exam: Gen: Vitals noted. No acute distress. Disheveled appearing Eyes: anicteric sclerae, moist conjunctivae; no lid-lag; Pupils equal and reactive to light HENT: Atraumatic; oropharynx clear with moist mucous membranes and no mucosal ulcerations; normal hard and soft palate Neck: Trachea midline; supple, no thyromegaly or lymphadenopathy Cardiac: RRR, 3/6 systolic murmur, +S1/S2 Pulmonary: B/l rhonchi on inspiration Abdomen: soft, nontender, no guarding. No masses or hepatosplenomegaly MSK: ROM intact, no joint swelling noted Extremities: no BLE edema, nontender calf, no cyanosis or clubbing. There are la cerations and there is ecchymosis on extremities b/l Skin: Normal temperature, turgor and texture; no rash, ulcers or subcutaneous nodules Neuro: moves all extremities, no obvious focal deficits. Patient has notable tremors Psych: Patient is sedation but alert to physical stimuli. Falls asleep quickly. Oriented to self and time. Internal Med - H&P Results - Labs CBC & Chem 7: 02/25/19 22:06 02/25/19 22:06 Labs: Short CBC 02/25/19 Range/Units 22:06 WBC 15.7 H (4.3-11.1) K/mcL Hgb 13.7 (12.9-16.9) g/dL Hct 39.3 (37.5-50.1) % Plt Count 216 (140-400) K/mcL Neutrophils # 13.0 H (1.6-8.9) K/mcL BMP 02/25/19 22:06 Sodium 132 L Potassium 4.5 Chloride 97 L Carbon Dioxide 14 L BUN 86 H Creatinine 4.51 H Glucose 82 Calcium 9.2 Cardiac Enzymes 02/25/19 Range/Units 22:06 Troponin I 0.71 H* (< 0.04) ng/mL Urine 02/25/19 Range/Units 23:41 Urine Color Dark Yellow (Yellow) Urine Clarity Cloudy A (Clear) Urine pH 5.0 (5.0-8.0) pH Units Ur Specific [place] 1.026 H (1.010-1.025) Urine Protein 30 H (Neg-Trace) mg/dL Urine Glucose (UA) Normal (Normal) mg/dL - Impressions ITS Impressions Head CT 02/25/19 21:58 IMPRESSION: No acute intracranial abnormality. D/ / Bartolo Torres / Bartolo Torres Interpreting Provider: Bartolo Torres Abdomen/Pelvis CT 02/25/19 23:13 IMPRESSION: Rectal wall thickening circumferentially. Please correlate for symptoms of proctitis. Hepatic cirrhosis. No evidence of renal collecting system dilatation. Cholelithiasis and biliary sludge without evidence of cholecystitis. D/ / Bartolo Torres / Bartolo Torres Interpreting Provider: Bartolo Torres Chest X-Ray 02/26/19 00:57 IMPRESSION: Tip of the right internal jugular venous catheter in the lower SVC. No pneumothorax. Either patchy bilateral pneumonia present or moderate pulmonary vascular congestion. D/ / Jere Mccabe MD / Jere Mccabe MD Interpreting Provider: Jere Mccabe MD - Assessment and Plan (1) Septic shock Current Visit: Yes Status: Acute Assessment and plan: Septic shock secondary to suspected pneumonia SIRs criteria WBC 15.7, HR 99, SBP <90. qSOFA Confusion, SBP <100. Source Suspected pna Patient does present with acute encephalopathy, likely secondary to septic shock versus substance-induced psychosis Chest x-ray in the ED demonstrated patchy bilateral airspace disease suspicious for atypical for multifocal pneumonia Other possible source includes possible proctitis versus cholecystitis seen on abdominal/pelvis CT Multiple degrees of end organ dysfunction, severe AK I with serum creatinine 4.5, troponin 0.7 On arrival, patient did have an iron gap acidosis of 21, lactic acid 1.0 however after 3 L of fluid Suspect that anion gap acidosis was likely lactic acidosis which had resolved secondary to large volume fluid resuscitation Patient did have blood cultures drawn Strep pneumonia and Legionella antigen pending Procalcitonin pending Plan Blood cultures, urine culture, strep and Legionella antigen pending Start Rocephin and azithromycin day 1 of likely 5, duration pending clinical Continue norepinephrine drip, titrate to MAP > 65 Repeat BMP + CBC in AM Continuous cardiac and O2 monitoring Strict I/Os Consult to critical care (2) Pneumonia Current Visit: Yes Status: Acute Assessment and plan: Suspected b/l community acquired pneumonia CXR Shows b/l diffuse infiltrates suspicious for atypical pna vs vascular congestion In addition this, the patient did present with septic shock and hypoxic respiratory failure At this time, cultures are pending as well as strep and Legionella urine antigen We will start the patient on Rocephin and azithromycin Duo nebs when necessary Supportive oxygen Qualifiers: Pneumonia type: due to unspecified organism Laterality: bilateral Lung location: unspecified part of lung Qualified Code(s): J18.9 - Pneumonia, unspecified organism (3) Acute respiratory failure with hypoxia Current Visit: Yes Status: Acute Assessment and plan: Acute hypoxic respiratory failure Patient saturating at 91% on 4 L oxygen, does not wear home oxygen This is likely secondary to pneumonia We will treat as above, continue supportive care (4) Encephalopathy Current Visit: Yes Status: Acute Assessment and plan: Encephalopathy, multifactorial etiology Patient does have septic shock, polysubstance intoxication and withdrawal, and Uremia in setting of HAYLEE He has received 3L fluid IV, and will continue to receive IVF continuously We will monitor labs Precedex drip for sedation Neuro checks (5) Acute kidney injury Current Visit: Yes Status: Acute Assessment and plan: Severe HAYLEE, Serum creatinine 4.5. Baseline appears to be 1.5 from prior labs Patient has rhabdomyolisis, CK 2984 - likely from [place] days He does have good UOP at this time, will continue to give IVF at 100 mL/hr Continue strict I/Os, chow in place Retroperitoneal US in am Trend BMP and CK Nephrology consult (6) Rhabdomyolysis Current Visit: Yes Status: Acute Assessment and plan: Rhabdomyolysis, CK 2984 Management as above Qualifiers: Rhabdomyolysis type: non-traumatic Qualified Code(s): M62.82 - Rha bdomyolysis (7) NSTEMI (non-ST elevated myocardial infarction) Current Visit: Yes Status: Acute Assessment and plan: NSTEMI, Trop 0.7 on arrival Although this is possibly demand ischemia, he did apparently have episode of chest pain two days ago Unknown whether patient has cardiac history at this time EKG did demonstrate some nonspecific ST-T wave changes in inferolateral leads Cardiology was consulted in the ED Started on Heparin drip Echo in AM, repeat EKG in AM Trend Trop (8) Polysubstance abuse Current Visit: Yes Status: Acute Assessment and plan: Polysubstance abuse/dependence suspected Multiple positives on UDS Suspect there may be a component of withdrawal Patient will be placed on precedex to manage hyperactive and agitated state - Time Spent With Patient Total time spent is greater than 50% in coordination of care (as documented) at patient's floor/unit and/or counseling patient: <Mark Schafer - Last Filed: 02/26/19 05:24> Date of Encounter: 02/26/19 Time of Encounter: 03:30 ROS unobtainable: due to mental status - Constitutional Vitals: Temp Pulse Resp BP Pulse Ox 98.1 F 90 14 112/59 99 02/26/19 04:51 02/26/19 04:51 02/26/19 04:51 02/26/19 04:51 02/26/19 04:51 General appearance: Present: A&O X 0, disheveled - Head Head exam: Present: normal inspection - Eye Eye exam: Present: PERRL. Absent: scleral icterus - ENT ENT exam: Present: mucous membranes dry, normal exam - Neck Neck exam general surgery: Present: supple, trachea midline - Respiratory Respiratory exam: Present: rales (faint, scattered), rhonchi. Absent: chest wall tenderness, wheezes - Cardiovascular Cardiovascular exam: Present: RRR, +S1, +S2, systolic murmur (grade 3-4), tachycardia. Absent: diastolic murmur - GI/Abdominal GI/Abdominal exam: Present: normal bowel sounds, soft, no peritoneal signs. Absent: guarding, hepatomegaly, mass, rebound, splenomegaly, tenderness - Extremities Exam Extremities exam: Present: full ROM, normal capillary refill, warm, radial pulses palpable and symmetrical. Absent: calf tenderness, joint swelling - Neurological Exam Additional comments: patient sedated -- unable to assess - Skin Skin exam: Present: dry, intact, warm Internal Med - H&P Results - Labs CBC & Chem 7: 02/26/19 04:15 02/26/19 04:15 Labs: Short CBC 02/25/19 02/26/19 Range/Units 22:06 04:15 WBC 15.7 H 14.7 H (4.3-11.1) K/mcL Hgb 13.7 12.0 L D (12.9-16.9) g/dL Hct 39.3 34.6 L (37.5-50.1) % Plt Count 216 201 (140-400) K/mcL Neutrophils # 13.0 H 11.9 H (1.6-8.9) K/mcL BMP 02/25/19 02/26/19 22:06 04:15 Sodium 132 L 132 L Potassium 4.5 3.6 Chloride 97 L 103 Carbon Dioxide 14 L 14 L BUN 86 H 77 H Creatinine 4.51 H 3.01 H Glucose 82 145 H Calcium 9.2 7.6 L Cardiac Enzymes 02/25/19 02/26/19 Range/Units 22:06 04:15 Troponin I 0.71 H* 0.47 H* (< 0.04) ng/mL Liver Function 02/26/19 Range/Units 04:15 Total Bilirubin 1.3 H (0.3-1.0) mg/dL AST 95 H (13-39) Units/L ALT 53 H (7-52) Units/L Alkaline Phosphatase 57 (34-104) Units/L Albumin 3.1 L (3.5-5.7) g/dL Urine 02/25/19 Range/Units 23:41 Urine Color Dark Yellow (Yellow) Urine Clarity Cloudy A (Clear) Urine pH 5.0 (5.0-8.0) pH Units Ur Specific [place] 1.026 H (1.010-1.025) Urine Protein 30 H (Neg-Trace) mg/dL Urine Glucose (UA) Normal (Normal) mg/dL - Impressions ITS Impressions Head CT 02/25/19 21:58 IMPRESSION: No acute intracranial abnormality. D/ / Bartolo Torres / Bartolo Torres Interpreting Provider: Bartolo Torres Abdomen/Pelvis CT 02/25/19 23:13 IMPRESSION: Rectal wall thickening circumferentially. Please correlate for symptoms of proctitis. Hepatic cirrhosis. No evidence of renal collecting system dilatation. Cholelithiasis and biliary sludge without evidence of cholecystitis. D/ / Bartolo Torres / Bartolo Torres Interpreting Provider: Bartolo Torres Chest X-Ray 02/26/19 00:57 IMPRESSION: Tip of the right internal jugular venous catheter in the lower SVC. No pneumothorax. Either patchy bilateral pneumonia present or moderate pulmonary vascular congestion. D/ / Jere Mccabe MD / Jere Mccabe MD Interpreting Provider: Jere Mccabe MD - Diagnostic Studies Chest x-ray Status: image reviewed by me (suggestive of pneumonia) - Time Spent With Patient Total time spent is greater than 50% in coordination of care (as documented) at patient's floor/unit and/or counseling patient: - Attending Attestation I discussed the patient [place], past medical history, exam findings, and imaging findings with Dr. Singer. I then saw and examined patient independently as he is well. Patient presented hypotensive and likely in hypovolemic shock. However, upon further review and evaluation, it appears that he may be in septic shock from likely pneumonia. As such, we will treat him for pneumonia while maintaining hemodynamic stability with Levophed and IV fluids. I suspect he had a lactic acidosis, but he was fluid resuscitated with 3 L IVF prior to drawing lactate level. At that point, lactate was normal. We will recheck chemistries and trend lactates and treat him with antibiotics to cover respiratory pathogens. He is sedated currently as he was quite agitated and combative from multiple drugs of abuse. Patient also has troponin elevation suggestive of non- STEMI. This is likely secondary to drug abuse and acute kidney failure. With IV fluid hydration, his kidney function has started to improve. We will monitor his kidney function closely, monitor I/O's, and consult nephrology. Regarding his cardiac status, we will consult cardiology and obtain echocardiogram given his significant murmur and history of drug abuse. I am quite concerned he may be developing endocarditis. Other than my comments above and documented physical exam findings, I agree with Dr. Singer's assessment and plan.
[2019-02-26] MEDS: Dexmedetomidine HCl 400 MCG/100 ML MLS IVC SCH (03:19)
[2019-02-26 04:18] LABS: Sodium, Urine 77.9 mEq/L
[2019-02-26 04:39] LABS: Basophils % 0.2 %; Eosinophils % 0.2 %; Hematocrit 34.6 % (37.5-50.1); Immature Granulocytes % 0.5 % (0-4); Lymphocytes # 2.1 K/mcL (0.6-4.6); Lymphocytes % 14.2 %; Mean Corpuscular HGB Conc 34.7 g/dL (31.6-35.5); Mean Corpuscular Hemoglobin 33.4 pg (28.0-33.3); Mean Corpuscular Volume 96.4 fL (83.0-100.0); Mean Platelet Volume 10.4 fL (9.4-12.4); Monocytes # 0.6 K/mcL (0.0-1.3); Monocytes % 4.1 %; Neutrophils # 11.9 K/mcL (1.6-8.9); Platelet Count 201 K/mcL (140-400); Red Blood Count 3.59 M/mcL (4.19-5.50); Red Cell Distribution Width 12.9 % (11.5-14.5); Segmented Neutrophils % 80.8 %; White Blood Count 14.7 K/mcL (4.3-11.1)
[2019-02-26 05:04] LABS: Troponin I 0.47 ng/mL (< 0.04)
[2019-02-26 05:05] LABS: Albumin 3.1 g/dL (3.5-5.7); Albumin/Globulin Ratio 1.2 (1.1-2.2); Bilirubin,Total 1.3 mg/dL (0.3-1.0); Calcium 7.6 mg/dL (8.6-10.3); Chol/HDL Ratio 3.6 (0-4.9); Globulin 2.5 g/dL (2.4-3.5); Magnesium 2.6 mg/dL (1.6-2.6); Phosphorous 5.3 mg/dL (2.7-4.5); Potassium 3.6 mEq/L (3.5-5.1); Total Protein 5.6 g/dL (6.4-8.9)
[2019-02-26] MEDS ORDERED: Perflutren Lipid Microsphere 1.3 ML in 0.9 % Sodium Chloride 8.7 ML IVP ONE (07:34)
--- NOTE | 2019-02-26 07:44 | Pulmonology Consult Note ---
<Sarah Rodriguez - Last Filed: 02/26/19 15:09> Date of Encounter: 02/26/19 Time of Encounter: 07:44 Assessment and Plan (1) Shock Current Visit: Yes Status: Acute Patient's blood pressure decreased on the emergency department requiring adm inistration of a central line and levophed Currently on 16 mics of levephed with BPs in the 110/50s Possible causes of shock include septic shock, cardiogenic shock, hypovolemic shock 3 L bolus given in the emergency department with 100 mL normal saline per hour after for management of potential hypovolemic shock Patient does have an elevated troponin and systolic cardiac murmur which could be indicative of NSTEMI or endocarditis Blood cultures 2 have been drawn and are pending Patient on heparin drip Chest x-ray shows evidence of potential pneumonia versus pulmonary edema Stat echo pending Cardiology consulted (2) NSTEMI (non-ST elevated myocardial infarction) Current Visit: Yes Status: Acute Troponin 0.71 on initial presentation No acute EKG changes Heparin GTT started, stat echo ordered and pending, and cardiology consulted Patient does have a loud systolic cardiac murmur which is concerning for possible development of endocarditis versus valve failure after NSTEMI Trending troponins, with repeat troponin initially decreasing to 0.47, but then increasing to 0.56 Blood cultures 2 have been drawn and are pending (3) Rhabdomyolysis Current Visit: Yes Status: Acute Initial CK 2984 3 L bolus and maintenance fluids given and repeat CK 1935 Continue to monitor CK and renal function Continue fluid hydration but switch to lactated Ringer's Potassium is been within normal limits throughout the patient's stay, continued to monitor potassium Qualifiers: Rhabdomyolysis type: non-traumatic Qualified Code(s): M62.82 - Rhabdomyolysis (4) Acute renal failure Current Visit: Yes Status: Acute Patient presented with creatinine of 4.51 in the emergency department Likely secondary to dehydration, possible septic shock and rhabdomyolysis 3 L fluid bolus was given with 100 mL normal saline per hour after that Repeat creatinine improved to 3.01 Continue fluid hydration but switch to lactated Ringer's 150 mL per hour due to the patient's acidotic state Continue to monitor urine output Nephro consulted Qualifiers: Acute renal failure type: unspecified Qualified Code(s): N17.9 - Acute kidney failure, unspecified (5) Encephalopathy Current Visit: Yes Status: Acute Altered mental status possibly secondary to septic shock, polysubstance abuse, uremia or rhabdomyolysis Precedex was discontinued this morning Continued to monitor patient's mental status (6) Pneumonia Current Visit: Yes Status: Suspected Chest x-ray shows bilateral patchy infiltrates which may be indicative of a bilateral pneumonia Pro-calcitonin elevated at 0.62, but this could be elevated secondary to acute renal injury and rhabdomyolysis Patient being treated for community-acquired pneumonia with Rocephin and azithromycin Qualifiers: Pneumonia type: due to unspecified organism Laterality: bilateral Lung location: unspecified part of lung Qualified Code(s): J18.9 - Pneumonia, unspecified organism (7) DVT prophylaxis Current Visit: Yes Status: Acute Heparin ggt History of Present Illness Consult date: 02/26/19 Requesting physician: Mark Schafer Reason for consult: other History of present illness: 59 yo male with PMHx of HTN presented to the emergency department yesterday with concerns of altered mental status, drug abuse and psychiatric concerns. The patient [place] and was acting confused. In the emergency department he was found to have acute rhabdomyolysis, elevated troponin level and his urine tested positive for when necessary morphine, marijuana and methamphetamines. Head CT was negative for acute abnormalities and CT scan of the abdomen demonstrated cirrhosis without any acute abdominal pathology. Chest x-ray showed possible pneumonia versus pulmonary vascular congestion. While he was in the emergency department the patient became hypotensive and a central line was placed for management of potential septic shock. Patient was given 3 L of IV fluid as a sepsis bolus and was maintained on 100 mL of normal saline per hour. Upon my examination of the patient patient is still very sedated and is unable to answer questions. There is no family available at bedside for further history. Per the hospitalist H&P the patient is full code. Past Med Surg Social Fam HX - Past Medical History Source: old records reviewed Medical history: hypertension Psychiatric history: no psych history - Past Surgical History Additional surgical history: back surgery, ankle surgery - Social History Smoking Status: Current every day smoker Smokeless Tobacco Status: No Drug use: marijuana Medications and Allergies Amitriptyline HCl 75 mg PO HS 02/26/19 [History] Gabapentin 800 mg PO TID 02/26/19 [History] Lisinopril/Hydrochlorothiazide [Zestoretic 20-25 mg Tablet] 1 tab PO DAILY 02/26/19 [History] Allergy/AdvReac Type Severity Reaction Status Date / Time No Known Allergies Allergy Verified 02/26/19 13:46 ROS unobtainable: due to mental status All Systems: The remainder of the systems were reviewed and are negative Physical Examination Vital Signs: Vital Signs, Last 4 Hours Temp Pulse Resp BP Pulse Ox 02/26/19 06:00 85 11 116/67 99 02/26/19 05:00 80 12 92/54 99 02/26/19 04:51 98.1 F 90 14 112/59 99 02/26/19 04:00 84 14 102/58 99 General appearance: no acute distress, asleep Eyes: nonicteric Effort: normal Auscultation: bilateral: rhonchi Cardiovascular: regular rate and rhythm, murmur noted (systolic) Gastrointestinal: soft, non-tender Integumentary: normal Extremities: no edema, pink and warm pupils equal and round Results - Laboratory Findings CBC and BMP: 02/26/19 04:15 02/26/19 10:03 PT/INR, D-dimer PT 11.0 Seconds (9.4-12.1) 02/26/19 04:15 Abnormal lab findings: Abnormal lab results WBC 14.7 K/mcL (4.3-11.1) H 02/26/19 04:15 RBC 3.59 M/mcL (4.19-5.50) L 02/26/19 04:15 Hgb 12.0 g/dL (12.9-16.9) L D 02/26/19 04:15 Hct 34.6 % (37.5-50.1) L 02/26/19 04:15 MCH 33.4 pg (28.0-33.3) H 02/26/19 04:15 Neutrophils # 11.9 K/mcL (1.6-8.9) H 02/26/19 04:15 Heparin Anti-Xa, Unfract 0.01 IU/mL (0.30-0.70) L 02/26/19 01:20 Sodium 132 mEq/L (136-145) L 02/26/19 04:15 Chloride 97 mEq/L (98-107) L 02/25/19 22:06 Carbon Dioxide 14 mEq/L (23-29) L 02/26/19 04:15 BUN 77 mg/dL (6-20) H 02/26/19 04:15 Creatinine 3.01 mg/dL (0.70-1.30) H 02/26/19 04:15 Est GFR ( Amer) 26 (> 60) L 02/26/19 04:15 Est GFR (Non-Af Amer) 21 (> 60) L 02/26/19 04:15 Glucose 145 mg/dL (70-105) H 02/26/19 04:15 Calcium 7.6 mg/dL (8.6-10.3) L 02/26/19 04:15 Phosphorus 5.3 mg/dL (2.7-4.5) H 02/26/19 04:15 Total Bilirubin 1.3 mg/dL (0.3-1.0) H 02/26/19 04:15 AST 95 Units/L (13-39) H 02/26/19 04:15 ALT 53 Units/L (7-52) H 02/26/19 04:15 Creatine Kinase 1935 Units/L (30-223) H 02/26/19 04:15 Troponin I 0.47 ng/mL (< 0.04) H* 02/26/19 04:15 B-Natriuretic Peptide 142 pg/mL (Less than 100) H 02/25/19 22:06 Serum Total Protein 5.6 g/dL (6.4-8.9) L 02/26/19 04:15 Albumin 3.1 g/dL (3.5-5.7) L 02/26/19 04:15 HDL Cholesterol 31 mg/dL (40-59) L 02/26/19 04:15 Procalcitonin 0.62 ng/mL (0.00-0.15) H 02/26/19 04:15 Urine Clarity Cloudy (Clear) A 02/25/19 23:41 Ur Specific [place] 1.026 (1.010-1.025) H 02/25/19 23:41 Urine Protein 30 mg/dL (Neg-Trace) H 02/25/19 23:41 Urine Ketones Trace mg/dL (Negative) H 02/25/19 23:41 Urine Blood Large (Negative) H 02/25/19 23:41 Urine Bilirubin Moderate (Negative) H 02/25/19 23:41 Ur Leukocyte Esterase Trace (Negative) H 02/25/19 23:41 Urine Microscopic RBC 5-15 per hpf (0-3) H 02/25/19 23:41 Ur Squamous Epith Cells Many per lpf (None-Few) H 02/25/19 23:41 Salicylates < 2.5 mg/dL (15.0-30.0) L 02/25/19 22:06 Ur Buprenorphine Scrn Positive ng/mL (Cutoff=5) H 02/25/19 23:41 Acetaminophen < 10 mcg/mL (10-20) L 02/25/19 22:06 Ur Amphetamines Screen Positive ng/mL (Bpqlrv=5060) H 02/25/19 23:41 U Marijuana (THC) Screen Positive ng/mL (Cutoff = 50) H 02/25/19 23:41 - Clinical Findings Intake & Output: Intake & Output 02/25/19 02/25/19 02/26/19 15:59 23:59 07:59 Intake Total 3704 / 3704 Output Total 1060 / 1060 Balance 2644 / 2644 Weight 82.554 kg Consult Discharge Plan - Plan Referrals: NONE,PCP [Primary Care Provider] - <Lexus Walls - Last Filed: 02/26/19 18:06> Date of Encounter: 02/26/19 All Systems: The remainder of the systems were reviewed and are negative Physical Examination Vital Signs: Vital Signs, Last 4 Hours Temp Pulse Resp BP Pulse Ox 02/26/19 08:00 98.0 F 85 16 88/53 97 02/26/19 07:00 85 16 116/67 97 02/26/19 06:00 85 11 116/67 99 02/26/19 05:00 80 12 92/54 99 02/26/19 04:51 98.1 F 90 14 112/59 99 Results - Laboratory Findings CBC and BMP: 02/26/19 04:15 02/26/19 16:40 PT/INR, D-dimer PT 11.0 Seconds (9.4-12.1) 02/26/19 04:15 Abnormal lab findings: Abnormal lab results WBC 14.7 K/mcL (4.3-11.1) H 02/26/19 04:15 RBC 3.59 M/mcL (4.19-5.50) L 02/26/19 04:15 Hgb 12.0 g/dL (12.9-16.9) L D 02/26/19 04:15 Hct 34.6 % (37.5-50.1) L 02/26/19 04:15 MCH 33.4 pg (28.0-33.3) H 02/26/19 04:15 Neutrophils # 11.9 K/mcL (1.6-8.9) H 02/26/19 04:15 Heparin Anti-Xa, Unfract 0.15 IU/mL (0.30-0.70) L 02/26/19 07:25 Sodium 132 mEq/L (136-145) L 02/26/19 04:15 Chloride 97 mEq/L (98-107) L 02/25/19 22:06 Carbon Dioxide 14 mEq/L (23-29) L 02/26/19 04:15 BUN 77 mg/dL (6-20) H 02/26/19 04:15 Creatinine 3.01 mg/dL (0.70-1.30) H 02/26/19 04:15 Est GFR ( Amer) 26 (> 60) L 02/26/19 04:15 Est GFR (Non-Af Amer) 21 (> 60) L 02/26/19 04:15 Glucose 145 mg/dL (70-105) H 02/26/19 04:15 Calcium 7.6 mg/dL (8.6-10.3) L 02/26/19 04:15 Phosphorus 5.3 mg/dL (2.7-4.5) H 02/26/19 04:15 Total Bilirubin 1.3 mg/dL (0.3-1.0) H 02/26/19 04:15 AST 95 Units/L (13-39) H 02/26/19 04:15 ALT 53 Units/L (7-52) H 02/26/19 04:15 Creatine Kinase 1935 Units/L (30-223) H 02/26/19 04:15 Troponin I 0.47 ng/mL (< 0.04) H* 02/26/19 04:15 B-Natriuretic Peptide 142 pg/mL (Less than 100) H 02/25/19 22:06 Serum Total Protein 5.6 g/dL (6.4-8.9) L 02/26/19 04:15 Albumin 3.1 g/dL (3.5-5.7) L 02/26/19 04:15 HDL Cholesterol 31 mg/dL (40-59) L 02/26/19 04:15 Procalcitonin 0.62 ng/mL (0.00-0.15) H 02/26/19 04:15 Urine Clarity Cloudy (Clear) A 02/25/19 23:41 Ur Specific [place] 1.026 (1.010-1.025) H 02/25/19 23:41 Urine Protein 30 mg/dL (Neg-Trace) H 02/25/19 23:41 Urine Ketones Trace mg/dL (Negative) H 02/25/19 23:41 Urine Blood Large (Negative) H 02/25/19 23:41 Urine Bilirubin Moderate (Negative) H 02/25/19 23:41 Ur Leukocyte Esterase Trace (Negative) H 02/25/19 23:41 Urine Microscopic RBC 5-15 per hpf (0-3) H 02/25/19 23:41 Ur Squamous Epith Cells Many per lpf (None-Few) H 02/25/19 23:41 Salicylates < 2.5 mg/dL (15.0-30.0) L 02/25/19 22:06 Ur Buprenorphine Scrn Positive ng/mL (Cutoff=5) H 02/25/19 23:41 Acetaminophen < 10 mcg/mL (10-20) L 02/25/19 22:06 Ur Amphetamines Screen Positive ng/mL ([place]=5111) H 02/25/19 23:41 U Marijuana (THC) Screen Positive ng/mL (Cutoff = 50) H 02/25/19 23:41 - Clinical Findings Intake & Output: Intake & Output 02/25/19 02/26/19 02/26/19 23:59 07:59 15:59 Intake Total 3704 / 4204 500 / 4204 Output Total 1060 / 2060 1000 / 2060 Balance 2644 / 2144 -500 / 2144 Weight 82.554 kg - Attending Attestation I examined this patient and my medical decision-making was reviewed with the Resident Physician. I agree with the documented findings, disposition and treatment plan as described except to the extent set forth below. Patient seen and examined. Labs, radiology, chart personally reviewed. Agree with resident's history and physical, assessment, plan with following comments: SOUBRETTE: Patient does not follows commands, patient is sedated and. stop Precedex. Psych evaluation and patient needs Pulmonary: Acceptable oxygenation and ventilation. Patient needs to be more awake and participated with incentive spirometry. Reviewed his chest x-ray with evidence of pulmonary congestion. Concerned with more fluid resuscitation that might affect his oxygenation. Cardiovascular: Patient is on Levophed for shock and they suspect combination of hypovolemia and questionable septic. Patient will need an echocardiogram with troponin leak, not sure at this time if this is just from stress or truly has NSTEMI. Patient will need TTE and may need cardiology evaluation. Patient has clinically audible murmur and it is unknown at this time if this is new and in this clinical setting we need t make sure this is not endocarditis and may need JOYCELYN. GI: Nutrition per dietary and GI prophylaxis per routine. Patient to be nothing by mouth at this time Heme: DVT prophylaxis per routine and patient is on heparin. ID: Continue antibiotics and plan to de-escalation and has received fluid, but I feel he still need more. Renal; urine out put and renal function reviewed. Patient will need more fluid resuscitation and there is some improvement in renal function. Suspect mild rhabdomyolsis and he is getting better. Endorcine: blood glucose is monitored Lines: all lines checked and no evidence of infections Skin: skin care to prevent pressure ulcers per nursing routine care Dispo: ICU Code: Full. Prognosis. Guarded. I spent 40 min of Critical Care time with this patient. It involved decision making of high complexity to assess, manipulate, and support vital organ system failure and/or to prevent further life threatening deterioration of the patient's condition. The time involved in the performance of separately reportable procedures was not counted toward critical care time.
[2019-02-26] MEDS: Ringers Solution, Lactated 1,000 ML IVC SCH ×3 (08:22→21:35)
[2019-02-26] MEDS: cefTRIAXone 1,000 MG in Water for inj. (sterile) 10 ML IVPB SCH (08:23)
[2019-02-26] MEDS: *HR* Heparin 5,000 UNIT/ML VIAL IVP PRN ×2 (08:31→14:45)
--- NOTE | 2019-02-26 10:25 | Cardiology Consult Note ---
Date of Encounter: 02/26/19 Time of Encounter: 09:30 Assessment and Plan (1) Pneumonia Current Visit: Yes Status: Acute Per cardiology: -Admitted with PNA. -Management per primary and pulmonary services. Qualifiers: Pneumonia type: due to unspecified organism Laterality: bilateral Lung location: unspecified part of lung Qualified Code(s): J18.9 - Pneumonia, unspecified organism (2) Rhabdomyolysis Current Visit: Yes Status: Acute Per cardiology: -Rhabdo noted. -Management per primary service. Qualifiers: Rhabdomyolysis type: non-traumatic Qualified Code(s): M62.82 - Rhabdomyolysis (3) Elevated troponin Current Visit: Yes Status: Acute Per cardiology: -Troponins 0.71, 0.47 in the setting of PNA, sepsis, septic shock, rhabdomyolysi s, polysubstance abuse. -Denies chest pain. -No acute ischemic ECG changes noted. -TTE pending. -On heparin drip. -NSTEMI type I vs II. -FUrther recs pending TTE. -Will add asa, statin. Not on BB due to hypotension. Discussion w patient/family: The assessment and plan as outlined above was discussed with the patient who expressed understanding and agreement. All questions were answered. Thank you for involving us in the care of your patient. Please call with any questions. Discussed and reviewed with . History of Present Illness Consult date: 02/26/19 Requesting physician: Juan Singer Consult reason: elevated troponin Chief complaint: confusion History of present illness: Mr. Tomlinson is a 59 year old male with a relevant past medical history of polysubstance abuse, tobacco abuse, hepatitis C, GERD, HTN, elevated creatinine, who presented to [facility] as recommended by family for confusion. Patient remains confused so majority of HPI obtained from previous documentation. Per notes, family was concerned about a psychiotic episode. When asked patient why he was at the hospital he states "a tumor, I think." Patient denies chest pain. Does report shortness of breath. Patient remains in ICU, on precedex drip. Past Med Surg Social Fam HX - Past Medical History Attestation: Yes The following information was validated with the patient. Source: patient, old records reviewed Medical history: hypertension Psychiatric history: no psych history - Past Surgical History Additional surgical history: back surgery, ankle surgery - Social History Smoking Status: Current every day smoker Smokeless Tobacco Status: No Drug use: marijuana Medications and Allergies Elavil 02/25/19 [History] Gabapentin PO 02/25/19 [History] Lisinopril 02/25/19 [History] Allergy/AdvReac Type Severity Reaction Status Date / Time No Known Allergies Allergy Verified 02/25/19 21:52 All Systems Review: The remainder of the systems were reviewed and are negative - Constitutional Constitutional: other (confusion) - Cardiovascular Cardiovascular: as per HPI, dyspnea at rest, dyspnea on exertion Physical Examination Vital Signs, Last 4 Hours Temp Pulse Resp BP Pulse Ox 02/26/19 09:59 85 14 102/54 99 02/26/19 09:00 86 16 102/53 100 02/26/19 08:00 98.0 F 85 16 88/53 97 02/26/19 07:00 83 16 116/67 97 General: Conversant, No Apparent Distress HEENT: Atraumatic, Normocephaly, Mucus Membranes Moist Neck: No JVD, Normal carotid pulses Cardiac: Reg Rate and Rhythm, Normal S1 and S2, No Murmur Lungs: Other (Lung sounds diminished throughout. ) Neuro: Alert and responsive, Other (Oriented to person and place. ) Abdomen: Soft, Non-Tender Skin: No rashes noted on visualized skin Musculoskeletal: No Chest Wall Tenderness Extremities: No Clubbing, No Cyanosis, No Edema, Normal Pulses Results 02/26/19 04:15 02/26/19 04:15 Lab Results Impressions Head CT 02/25/19 21:58 IMPRESSION: No acute intracranial abnormality. D/ / Bartolo Torres / Bartolo Torres Interpreting Provider: Bartolo Torres Abdomen/Pelvis CT 02/25/19 23:13 IMPRESSION: Rectal wall thickening circumferentially. Please correlate for symptoms of proctitis. Hepatic cirrhosis. No evidence of renal collecting system dilatation. Cholelithiasis and biliary sludge without evidence of cholecystitis. D/ / 02/26/2019 07:05:42 Bartolo Torres / [email or web address] Interpreting Provider: Bartolo Torres Chest X-Ray 02/26/19 00:57 IMPRESSION: Tip of the right internal jugular venous catheter in the lower SVC. No pneumothorax. Either patchy bilateral pneumonia present or moderate pulmonary vascular congestion. D/ / Jere Mccabe MD / Jere Mccabe MD Interpreting Provider: Jere Mccabe MD Active Medications Albuterol/Ipratropium (Duoneb) 3 ml IH [id number] PRN PRN Reason: Shortness Of Breath/Wheezing Stop: 08/28/19 02:37 Heparin Sodium (Porcine) (Heparin) 4,000 unit IVP Q6HR PRN PRN Reason: SEE COMMENTS Stop: 08/28/19 00:29 Heparin Sodium (Porcine) (Heparin) 2,000 unit IVP Q6H PRN PRN Reason: SEE COMMENTS Stop: 08/28/19 00:29 Last Admin: 02/26/19 08:31 Dose: 2,000 unit Documented by: Heparin Sodium/Dextrose (Heparin 25,000 Unit/250 Ml D5w) 25,000 unit in 250 mls @ 9.906 mls/hr IVC .Q24H CATHY; Protocol Stop: 08/28/19 00:31 Last Titration: 02/26/19 08:26 Dose: 14 unit/kg/hr, 11.6 mls/hr Documented by: Norepinephrine Bitartrate 4 mg (/ Dextrose) 254 mls @ 30.48 mls/hr IVC CONT CATHY; Protocol Stop: 08/28/19 01:01 Last Admin: 02/26/19 08:40 Dose: 16 mcg/min, 61 mls/hr Documented by: Dexmedetomidine HCl (Precedex Premix) 400 mcg in 100 mls @ 4.128 mls/hr IVC .Q24H CATHY; Protocol Stop: 08/28/19 02:31 Last Admin: 02/26/19 03:19 Dose: 0.1 mcg/kg/hr, 2.1 mls/hr Documented by: Azithromycin 500 mg/ Dextrose 250 mls @ 252 mls/hr IVPB Q24H CATHY Stop: 08/29/19 03:01 Ceftriaxone Sodium 1,000 mg/ (Sterile Water) 10 mls @ 300 mls/hr IVPB DAILY CATHY Stop: 08/28/19 09:01 Last Infusion: 02/26/19 08:25 Dose: Infused Documented by: Lactated Ringer's (Lactated Ringers) 1,000 mls @ 150 mls/hr IVC .Q6H40M CATHY Stop: 08/28/19 07:46 Last Admin: 02/26/19 08:22 Dose: 150 mls/hr Documented by: Naloxone HCl (Narcan) 0.4 mg IVP Q2MPRN PRN PRN Reason: SEE COMMENTS Stop: 08/28/19 02:10 Ondansetron HCl (Zofran) 4 mg IVP Q8HR PRN PRN Reason: Nausea And Vomiting Stop: 08/28/19 02:10 Laboratory Tests 02/25/19 02/25/19 02/25/19 22:06 22:06 22:06 WBC 15.7 H Hgb Creatinine 4.51 H Creatine Kinase 2984 H Troponin I 0.71 H* 02/26/19 02/26/19 04:15 04:15 WBC Hgb 12.0 L D Creatinine 3.01 H Creatine Kinase 1935 H Troponin I 0.47 H* - Imaging and Cardiology Chest Xray: report reviewed Echo: pending - EKG Interpretation EKG results cardiology: personally reviewed (ECG with SR, HR 89.) Consult Discharge Plan - Plan Referrals: NONE,PCP [Primary Care Provider] -
--- NOTE | 2019-02-26 11:45 | Nephrology Consult Note ---
Date of Encounter: 02/26/19 Time of Encounter: 12:00 Assessment and Plan (1) Acute kidney injury Current Visit: Yes Status: Acute Elevated SCr in the setting of shock likely septic requiring pressor support which is already improving, mild rhabdo UOp [place] 2060cc in the past 24hrs Avoid nephrotoxins if possible Continue volume repletion No acute indication for LUMBER BEARER at this time Urine studies noted (2) Shock Current Visit: Yes Status: Acute (3) NSTEMI (non-ST elevated myocardial infarction) Current Visit: Yes Status: Acute Per cardiology (4) Rhabdomyolysis Current Visit: Yes Status: Acute Already improving Qualifiers: Rhabdomyolysis type: non-traumatic Qualified Code(s): M62.82 - Rhabdomyolysis History of Present Illness - Reason for Consult Consult date: 02/26/19 Acute Kidney Injury Requesting physician: Juan Singer - History of Present Illness 59 y o male with PMH of HTN, hep C, psych issues and polysubstance abuse admitted with altered mental status and was found in septic shock with PNA and elevated troponin as well as SCr at 4.51, GFR 13 improving to 3.01, GFR 21. Baseline SCr noted at 1.5, GFR 48 as of 12/2017. CPK also elevated at 2900. Renal consult placed this am. Pt seen and examined Past Med Surg Social Fam HX - Past Medical History Medical history: hypertension Psychiatric history: no psych history - Past Surgical History Additional surgical history: back surgery, ankle surgery - Social History Smoking Status: Current every day smoker Smokeless Tobacco Status: No Drug use: marijuana Medications and Allergies Elavil 02/25/19 [History] Gabapentin PO 02/25/19 [History] Lisinopril 02/25/19 [History] Allergy/AdvReac Type Severity Reaction Status Date / Time No Known Allergies Allergy Verified 02/25/19 21:52 Review of Systems ROS unobtainable: due to mental status Exam - Vital Signs Vital signs: Initial Vital Signs Temp Pulse Resp BP Pulse Ox 97.8 F 90 20 105/60 98 02/25/19 21:52 02/25/19 21:52 02/25/19 21:52 02/25/19 21:52 02/25/19 21:52 Vital Signs - Last 8 Hours Temp Pulse Resp BP Pulse Ox 02/26/19 11:00 88 15 111/58 100 02/26/19 09:59 85 14 102/54 99 02/26/19 09:00 86 16 102/53 100 02/26/19 08:00 98.0 F 85 16 88/53 97 02/26/19 07:00 83 16 116/67 97 02/26/19 06:00 85 11 116/67 99 02/26/19 05:00 80 12 92/54 99 02/26/19 04:51 98.1 F 90 14 112/59 99 02/26/19 04:00 84 14 102/58 99 Intake and Output 02/25/19 02/26/19 02/26/19 23:59 07:59 15:59 Intake Total 3704 / 4536 832 / 4536 Output Total 1059 / 2059 999 / 2059 Balance 2644 / 2476 -168 / 2476 Intake: IV Fluids 3704 / 4536 832 / 4536 0.9 % Sodium Chloride 1,000 ML 3000 / 3500 500 / 3500 @ 100 mls/hr IVC .Q10H [facility] Rx#: [id number] Heparin 25,000 UNIT/250 ML D5W 68 / 68 25,000 unit In 250 ml @ 12 UNIT /KG/HR 9.906 mls/hr IVC .Q24H CATHY Rx#:[id number] Levophed 4 MG In Dextrose 5% 254 / 508 254 / 508 250 ML @ 8 MCG/MIN 30.48 mls/hr IVC CONT CATHY Rx#:[id number] Zosyn 3.375 GM In 0.9 % Sodium 100 / 100 Chloride (Mini-Bag +) 100 ML @ 100 mls/hr IVP ONCE ONE Rx#: [id number] Zithromax 500 MG In Dextrose 5% 250 / 250 250 ML @ 252 mls/hr IVPB ONCE ONE Rx#:[id number] Potassium Chloride 20 mEq/100 100 / 100 mL 20 meq In 100 ml @ 100 mls/ hr IVPB Q1H ONE Rx#:[id number] Rocephin 1,000 MG In Water for inj. (sterile) 10 ML @ 300 mls/ hr IVPB DAILY [facility] Rx#: [id number] Output: Catheter 1059 / 2059 Other: Weight 82.554 kg Blood Glucose* 94 Results - Lab Results 02/26/19 04:15 02/26/19 10:03 Most recent lab results 02/26/19 02/26/19 03:04 04:15 Calcium 7.6 L Phosphorus 5.3 H Magnesium 2.6 Urine Creatinine 56 Urine Sodium 77.9 Consult Discharge Plan - Plan Referrals: NONE,PCP [Primary Care Provider] -
[2019-02-26 17:12] LABS: BUN/Creatinine Ratio 38 (6-26); Blood Urea Nitrogen 45 mg/dL (6-20); Calcium 8.7 mg/dL (8.6-10.3); Carbon Dioxide 24 mEq/L (23-29); Chloride 101 mEq/L (98-107); Creatine Kinase 891 Units/L (30-223); Glucose 116 mg/dL (70-105); Osmolality,Calculated 291 (280-300); Potassium 3.6 mEq/L (3.5-5.1); Sodium 134 mEq/L (136-145); eGFR For African Americans > 60 (> 60); eGFR For Non-African Americans > 60 (> 60)
[2019-02-26 17:16] LABS: Troponin I 0.42 ng/mL (< 0.04)
[2019-02-27] MEDS ORDERED: Azithromycin 500 MG in D5% in Water 250 ML IVPB SCH (03:00)
[2019-02-27] MEDS: Dexmedetomidine HCl 400 MCG/100 ML MLS IVC SCH (03:17)
[2019-02-27] MEDS: Ringers Solution, Lactated 1,000 ML IVC SCH ×2 (03:46→18:43)
[2019-02-27 04:35] LABS: BUN/Creatinine Ratio 40 (6-26); Blood Urea Nitrogen 30 mg/dL (6-20); Calcium 8.3 mg/dL (8.6-10.3); Carbon Dioxide 26 mEq/L (23-29); Chloride 102 mEq/L (98-107); Glucose 103 mg/dL (70-105); Osmolality,Calculated 286 (280-300); Potassium 3.7 mEq/L (3.5-5.1); Sodium 135 mEq/L (136-145); eGFR For African Americans > 60 (> 60); eGFR For Non-African Americans > 60 (> 60)
[2019-02-27] MEDS: *HR* Heparin 5,000 UNIT/ML VIAL IVP PRN (04:59)
[2019-02-27] MEDS: cefTRIAXone 1,000 MG in Water for inj. (sterile) 10 ML IVPB SCH (08:27)
[2019-02-27 08:52] LABS: Estimated Average Glucose 120 mg/dl
[2019-02-27] MEDS ORDERED: Aspirin Enteric Coated 81 MG Tablet PO SCH (09:00)
--- NOTE | 2019-02-27 11:08 | Pulmonology Progress Note ---
<ChristyChristiano W - Last Filed: 02/27/19 13:36> Date of Encounter: 02/27/19 Objective PUL Vital signs: Last Vital Signs Temp 98.7 F 02/27/19 11:51 Pulse 84 02/27/19 12:41 Resp 20 02/27/19 12:41 BP 108/73 02/27/19 12:41 Pulse Ox 95 02/27/19 12:41 Results - Laboratory Findings CBC and BMP: 02/26/19 04:15 02/27/19 03:56 PT/INR, D-dimer PT 11.0 Seconds (9.4-12.1) 02/26/19 04:15 Abnormal lab findings: Abnormal lab results WBC 14.7 K/mcL (4.3-11.1) H 02/26/19 04:15 RBC 3.59 M/mcL (4.19-5.50) L 02/26/19 04:15 Hgb 12.0 g/dL (12.9-16.9) L D 02/26/19 04:15 Hct 34.6 % (37.5-50.1) L 02/26/19 04:15 MCH 33.4 pg (28.0-33.3) H 02/26/19 04:15 Neutrophils # 11.9 K/mcL (1.6-8.9) H 02/26/19 04:15 Heparin Anti-Xa, Unfract 0.23 IU/mL (0.30-0.70) L 02/27/19 03:56 Sodium 135 mEq/L (136-145) L 02/27/19 03:56 Chloride 97 mEq/L (98-107) L 02/25/19 22:06 Carbon Dioxide 14 mEq/L (23-29) L 02/26/19 04:15 BUN 30 mg/dL (6-20) H 02/27/19 03:56 Creatinine 3.01 mg/dL (0.70-1.30) H 02/26/19 04:15 Est GFR ( Amer) 26 (> 60) L 02/26/19 04:15 Est GFR (Non-Af Amer) 21 (> 60) L 02/26/19 04:15 BUN/Creatinine Ratio 40 (6-26) H 02/27/19 03:56 Glucose 116 mg/dL (70-105) H 02/26/19 16:40 POC Glucose 106 mg/dL (70-99) H 02/27/19 11:45 Hemoglobin A1c 5.8 % (-5.6) H 02/26/19 04:15 Calcium 8.3 mg/dL (8.6-10.3) L 02/27/19 03:56 Phosphorus 5.3 mg/dL (2.7-4.5) H 02/26/19 04:15 Total Bilirubin 1.3 mg/dL (0.3-1.0) H 02/26/19 04:15 AST 95 Units/L (13-39) H 02/26/19 04:15 ALT 53 Units/L (7-52) H 02/26/19 04:15 Creatine Kinase 891 Units/L (30-223) H 02/26/19 16:40 Troponin I 0.42 ng/mL (< 0.04) H* 02/26/19 16:40 B-Natriuretic Peptide 142 pg/mL (Less than 100) H 02/25/19 22:06 Serum Total Protein 5.6 g/dL (6.4-8.9) L 02/26/19 04:15 Albumin 3.1 g/dL (3.5-5.7) L 02/26/19 04:15 HDL Cholesterol 31 mg/dL (40-59) L 02/26/19 04:15 Procalcitonin 0.62 ng/mL (0.00-0.15) H 02/26/19 04:15 Urine Clarity Cloudy (Clear) A 02/25/19 23:41 Ur Specific [place] 1.026 (1.010-1.025) H 02/25/19 23:41 Urine Protein 30 mg/dL (Neg-Trace) H 02/25/19 23:41 Urine Ketones Trace mg/dL (Negative) H 02/25/19 23:41 Urine Blood Large (Negative) H 02/25/19 23:41 Urine Bilirubin Moderate (Negative) H 02/25/19 23:41 Ur Leukocyte Esterase Trace (Negative) H 02/25/19 23:41 Urine Microscopic RBC 5-15 per hpf (0-3) H 02/25/19 23:41 Ur Squamous Epith Cells Many per lpf (None-Few) H 02/25/19 23:41 Salicylates < 2.5 mg/dL (15.0-30.0) L 02/25/19 22:06 Ur Buprenorphine Scrn Positive ng/mL (Cutoff=5) H 02/25/19 23:41 Acetaminophen < 10 mcg/mL (10-20) L 02/25/19 22:06 Ur Amphetamines Screen Positive ng/mL (Lxwjoc=6040) H 02/25/19 23:41 U Marijuana (THC) Screen Positive ng/mL (Cutoff = 50) H 02/25/19 23:41 - Microbiology Findings Microbiology Findings: Microbiology, Last 48 Hours 02/26/19 04:00 Urine Culture - Final Urine,Catheterized (Straight) No growth. 02/26/19 04:00 Legionella Antigen - Final Urine,Escalera Port Streptococcus pneumoniae Antigen (M - Final 02/26/19 01:20 Blood Culture - Preliminary Peripheral Venipuncture Culture is incubating and being continuously sami tored for growth. Final report to follow. 02/26/19 01:20 Blood Culture - Preliminary Peripheral Venipuncture Culture is incubating and being continuously monitored for growth. Final report to follow. - Clinical Findings Intake & Output: Intake & Output 02/26/19 02/27/19 02/27/19 23:59 07:59 15:59 Intake Total 1211 / 7073 1854 / 2739 885 / 2739 Output Total 1625 / 5385 200 / 200 Balance -414 / 1688 1654 / 2539 885 / 2539 Weight 83 kg Consult Discharge Plan - Plan Referrals: NONE,PCP [Primary Care Provider] - - Attending Attestation I examined this patient and my medical decision-making was reviewed with the Resident Physician. I agree with the documented findings, disposition and treatment plan as described except to the extent set forth below. We independently had [id number] contact with the patient I spent of Critical Care time with this patient. It involved decision making of high complexity to assess, manipulate, and support vital organ system failure and/or to prevent further life threatening deterioration of the patient's condition. The time involved in the performance of separately reportable procedures was not counted toward critical care time. Patient seen and examined at bedside Labs, radiology, chart personally reviewed. Management was reviewed during multidisciplinary critical care rounds. 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 NSTEMI likely demand ischemia appreciate cardiology evaluation and recommendations for conservative management GI: Continue to monitor Nutrition: Advance diet as tolerated Renal: Acute kidney injury was rhabdo improving once consistently taking by mouth can stop IV fluids UOP Monitored, Cont to Trend sCr and monitor Electrolytes. ID: Patient is on antibiotics possibly has pneumonia we will need to follow-up on cultures Heme/Onc: DVT prophylaxis given Endo: Glucose Monitored Integ/MSK: Skin Care per routine ICU Nursing Protocol to prevent ulcers. Lines: All lines examined without evidence of infection : Dispo: Stable for transfer to [facility] telemetry for ongoing care CODE: Full <Quang Fair - Last Filed: 02/27/19 16:23> Date of Encounter: 02/27/19 Time of Encounter: 09:35 Assessment and Plan (1) Septic shock Current Visit: Yes Status: Acute -likely 2/2 community-acquired pneumonia -SIRS 2/4: rr 20, WBC 15.7 -MAP 55 -lactic acid WNL; blood cultures 02/26/19 x2 NTD and pending -Recent blood pressures stable without norepinephrine. White count trending downwards. Patient is satting well on room air. Plan: PIP/tazo discontinued. Continue azithromycin day 2, ceftriaxone day 2. Maintenance LR pending CK level. (2) NSTEMI (non-ST elevated myocardial infarction) Current Visit: Yes Status: Acute -Likely type II NSTEMI -Troponins 0.71> 0.47> 0.56> 0.42 -EKG 02/26/19: No evidence of acute ischemia appreciated. However possible old anterior infarct with ST depressions in leads V3,4. -Echo 02/26/19: LVEF 65-70%. Asymmetric basal septal hypertrophy. LV diastolic dysfunction. Mild mitral regurg, tricuspid regurg, pulmonic regurg. No pulmonary hypertension -Cardiology recommends no urgent LHC. Plan: Cardiology consulted. Aspirin, statin. Hold beta cisco secondary to hypertension. (3) Rhabdomyolysis Current Visit: Yes Status: Acute -Likely secondary to prolonged immobilization by [place] -Initial CK 2984. -BUN/Cr 86/4.51 initially. -UA showed heme positivity. -Around 7 L fluid thus far. Kidney function improving. Patient euvolemic on exam. I/O: 4.2 L total. Potassium WNL. Calcium low at 8.3. Plan: Will continue versus stop LR pending repeat CK. Qualifiers: Rhabdomyolysis type: non-traumatic Qualified Code(s): M62.82 - Rhabdomyolysis (4) Acute kidney injury Current Visit: Yes Status: Acute -Likely prerenal secondary to septic shock -02/25/19: Urine specific gravity elevated. -BUN/Cr 86/4.51 initially. -Likely some component of acute tubular necrosis. RBCs and protein in the urine. Plan: Continue to monitor renal function and LR maintenance pending repeat CK. Nephrology consulted. (5) Encephalopathy Current Visit: Yes Status: Acute -Consider secondary to multi-drug intoxication versus hyperuremia -Patient reportedly altered on admission. Mental status improving. Some mild tenderness on exam, potentially secondary to THC withdrawal. -CT head negative Plan: Continue to monitor for worsening mental status and withdrawal symptoms. (6) Pneumonia Current Visit: Yes Status: Suspected -Likely community-acquired. -Pro calcitonin 0.62 -Urine Legionella and strep. pneumo antigens 02/26/19 negative. -CXR showed patchy bilateral pneumonia versus pulmonary vascular congestion Plan: Continue levofloxacin and ceftriaxone as above Qualifiers: Pneumonia type: due to unspecified organism Laterality: bilateral Lung location: unspecified part of lung Qualified Code(s): J18.9 - Pneumonia, unspecified organism (7) Hyponatremia Current Visit: Yes Status: Acute Background -Minimal. Consider lab artifact versus hypovolemic as improved through the course of his stay. S/Sx -Good skin turgor, no lower extremity edema Labs -Calculated serum osmolality WNL. Lipids WNL. Low serum total protein. Plan: Continue to monitor (8) Hepatitis C Current Visit: Yes Status: Acute -Diagnosed around 2011 -Elevated AST and ALT -Elevated urine bilirubin Plan: No current therapy. Continue to monitor Qualifiers: Qualified Code(s): B18.2 - Chronic viral hepatitis C (9) DVT prophylaxis Current Visit: Yes Status: Acute Subcutaneous heparin Subjective Interval history: Course per EMR: Patient presented to the emergency department on 02/25/19 after being found by a pechanga. Blood pressure was originally 105/60 but plummeted to 60/52. Other vitals were relatively stable. Initial labs significant for elevated white count, hyponatremia, HAYLEE, CK of 2984, elevated troponin at 0.71 which trended to 0.42, BNP 142, hematuria, proteinuria, biliuria. Urine tox screen positive for buprenorphine, amphetamines, marijuana. Head CT was negative for acute intracranial abnormalities. Abdominal pelvic CT showed rectal wall thickening, hepatic cirrhosis. Chest x-ray showed patchy bilateral pneumonia versus moderate pulmonary vascular congestion. Echo showed left ventricular ejection fraction of 65-70% with left ventricular diastolic dysfunction, moderate mitral regurg, mild tricuspid regurg, mild pulmonic regurg and no pulmonary hypertension. The patient was bolused with 3 L of normal saline and given norepinephrine which has now been discontinued. He was also sedated with Ativan and Haldol secondary to agitation and admitted to the ICU for septic shock. His norepinephrine was discontinued on 02/26/19 at 17:30. Since that time his systolic blood pressure reached as low as 83, however recent blood pressures have been in the 100s to 1- teens. 02/27/19: The patient states that he feels better. He has no new complaints. IJ central venous catheter, Escalera removed. His maintenance LR has been discontinued and we will consider continuing if repeat CK is not trending down. Plan to transfer to telemetry floor today. Objective PUL Vital signs: Last Vital Signs Temp 97.6 F 02/27/19 07:40 Pulse 78 02/27/19 10:00 Resp 20 02/27/19 10:00 BP 114/68 02/27/19 09:00 Pulse Ox 92 02/27/19 10:00 Gen.: Middle-aged male. No acute distress. Skin: Good turgor. Multiple excoriations on arms and back. Eyes: Moist. Anicteric Neck: No carotid bruits. Hepatojugular reflux also possible however I believe angle of the bed was less than 45 degrees. Cardiac: Regular rate and rhythm. 3/6 systolic murmur best heard over mitral post (mitral regurg seen on recent echo). Respiratory: Diffuse expiratory lateral rhonchi worst in the bases. Wet crackles in bases bilaterally GI: Mild tenderness in the left lower quadrant with no rebound tenderness. No aortic bruit. MSK: Clubbing. Extremities: Capillary refill less than 2 seconds bilateral upper extremities. No bilateral lower extremity edema Neuro: Eyes able to focus. No tremors noted Psych: Appropriate behavior. Answered questions coherently Ventilator Settings Ventilator Settings: Patient did not require ventilator Results - Laboratory Findings CBC and BMP: 02/26/19 04:15 02/27/19 03:56 PT/INR, D-dimer PT 11.0 Seconds (9.4-12.1) 02/26/19 04:15 Abnormal lab findings: Abnormal lab results WBC 14.7 K/mcL (4.3-11.1) H 02/26/19 04:15 RBC 3.59 M/mcL (4.19-5.50) L 02/26/19 04:15 Hgb 12.0 g/dL (12.9-16.9) L D 02/26/19 04:15 Hct 34.6 % (37.5-50.1) L 02/26/19 04:15 MCH 33.4 pg (28.0-33.3) H 02/26/19 04:15 Neutrophils # 11.9 K/mcL (1.6-8.9) H 02/26/19 04:15 Heparin Anti-Xa, Unfract 0.23 IU/mL (0.30-0.70) L 02/27/19 03:56 Sodium 135 mEq/L (136-145) L 02/27/19 03:56 Chloride 97 mEq/L (98-107) L 02/25/19 22:06 Carbon Dioxide 14 mEq/L (23-29) L 02/26/19 04:15 BUN 30 mg/dL (6-20) H 02/27/19 03:56 Creatinine 3.01 mg/dL (0.70-1.30) H 02/26/19 04:15 Est GFR ( Amer) 26 (> 60) L 02/26/19 04:15 Est GFR (Non-Af Amer) 21 (> 60) L 02/26/19 04:15 BUN/Creatinine Ratio 40 (6-26) H 02/27/19 03:56 Glucose 116 mg/dL (70-105) H 02/26/19 16:40 POC Glucose 111 mg/dL (70-99) H 02/27/19 07:33 Hemoglobin A1c 5.8 % (-5.6) H 02/26/19 04:15 Calcium 8.3 mg/dL (8.6-10.3) L 02/27/19 03:56 Phosphorus 5.3 mg/dL (2.7-4.5) H 02/26/19 04:15 Total Bilirubin 1.3 mg/dL (0.3-1.0) H 02/26/19 04:15 AST 95 Units/L (13-39) H 02/26/19 04:15 ALT 53 Units/L (7-52) H 02/26/19 04:15 Creatine Kinase 891 Units/L (30-223) H 02/26/19 16:40 Troponin I 0.42 ng/mL (< 0.04) H* 02/26/19 16:40 B-Natriuretic Peptide 142 pg/mL (Less than 100) H 02/25/19 22:06 Serum Total Protein 5.6 g/dL (6.4-8.9) L 02/26/19 04:15 Albumin 3.1 g/dL (3.5-5.7) L 02/26/19 04:15 HDL Cholesterol 31 mg/dL (40-59) L 02/26/19 04:15 Procalcitonin 0.62 ng/mL (0.00-0.15) H 02/26/19 04:15 Urine Clarity Cloudy (Clear) A 02/25/19 23:41 Ur Specific [place] 1.026 (1.010-1.025) H 02/25/19 23:41 Urine Protein 30 mg/dL (Neg-Trace) H 02/25/19 23:41 Urine Ketones Trace mg/dL (Negative) H 02/25/19 23:41 Urine Blood Large (Negative) H 02/25/19 23:41 Urine Bilirubin Moderate (Negative) H 02/25/19 23:41 Ur Leukocyte Esterase Trace (Negative) H 02/25/19 23:41 Urine Microscopic RBC 5-15 per hpf (0-3) H 02/25/19 23:41 Ur Squamous Epith Cells Many per lpf (None-Few) H 02/25/19 23:41 Salicylates < 2.5 mg/dL (15.0-30.0) L 02/25/19 22:06 Ur Buprenorphine Scrn Positive ng/mL (Cutoff=5) H 02/25/19 23:41 Acetaminophen < 10 mcg/mL (10-20) L 02/25/19 22:06 Ur Amphetamines Screen Positive ng/mL (Exmzay=1210) H 02/25/19 23:41 U Marijuana (THC) Screen Positive ng/mL (Cutoff = 50) H 02/25/19 23:41 - Microbiology Findings Microbiology Findings: Microbiology, Last 48 Hours 02/26/19 04:00 Urine Culture - Final Urine,Catheterized (Straight) No growth. 02/26/19 04:00 Legionella Antigen - Final Urine,Escalera Port Streptococcus pneumoniae Antigen (M - Final 02/26/19 01:20 Blood Culture - Preliminary Peripheral Venipuncture Culture is incubating and being continuously monitored for growth. Final report to follow. 02/26/19 01:20 Blood Culture - Preliminary Peripheral Venipuncture Culture is incubating and being continuously monitored for growth. Final report to follow. - Clinical Findings Intake & Output: Intake & Output 02/26/19 02/27/19 02/27/19 23:59 07:59 15:59 Intake Total 1211 / 7073 1854 / 2739 885 / 2739 Output Total 1625 / 5385 200 / 200 Balance -414 / 1688 1654 / 2539 885 / 2539 Weight 83 kg
--- NOTE | 2019-02-27 11:33 | Cardiology Progress Note ---
Date of Encounter: 02/27/19 Time of Encounter: 09:00 Assessment and Plan (1) Pneumonia Current Visit: Yes Status: Suspected Per cardiology: -Admitted with PNA. -Management per primary and pulmonary services. Qualifiers: Qualified Code(s): J18.9 - Pneumonia, unspecified organism (2) Rhabdomyolysis Current Visit: Yes Status: Acute Per cardiology: -Rhabdo noted. -Management per primary service. Qualifiers: Qualified Code(s): M62.82 - Rhabdomyolysis (3) Elevated troponin Current Visit: Yes Status: Acute Per cardiology: -Troponins 0.71, 0.47, 0.56, 0.42 in the setting of PNA, sepsis, septic shock, rhabdomyolysis, polysubstance abuse. -Denies chest pain. -No acute ischemic ECG changes noted. -With LVEF 65-70%, probable asymmetric basal hypertrophy, LV diastolic dysfunction, NINI of anterior mitral valve leaflet, mild-moderate MR, mild inc rease in resting LVOT velocity without significant change with valsalva, mild TR, mild HI, no segmental wall motion abnormalities noted. -On heparin drip, asa. Not on statin due to elevated LFTS. Not on BB due to hypotension. -Demand ischemia, no cardiac rehab consult warranted. Also, suspect patient would be poor candidate for invasive cardiac evaluation. -Consider addition of BB when BP will tolerate. -Cardiology will sign off, will arrange outpatient follow up. Discussion w patient/family: The assessment and plan as outlined above was discussed with the patient who expressed understanding and agreement. All questions were answered. Thank you for involving us in the care of your patient. Please call with any questions. Discussed and reviewed with . Subjective Principal diagnosis: Elevated troponin Interval history: Patient denies chest pain. Reports he is feeling better today. Objective Vital Signs, Last 4 Hours Temp Pulse Resp BP Pulse Ox 02/27/19 11:27 98.7 F 87 24 112/60 97 02/27/19 10:00 78 20 92 02/27/19 09:00 80 20 114/68 100 02/27/19 08:00 86 20 107/68 100 02/27/19 07:40 97.6 F General: Conversant, No Apparent Distress HEENT: Atraumatic, Normocephaly, Mucus Membranes Moist Neck: No JVD, Normal carotid pulses Cardiac: Reg Rate and Rhythm, Normal S1 and S2, No Murmur Lungs: Normal Breath Sounds, No Wheeze, Rales, Rhonchi Neuro: Alert and responsive, No focal deficits noted Abdomen: Soft, Non-Tender Skin: No rashes noted on visualized skin Musculoskeletal: No Chest Wall Tenderness Extremities: No Clubbing, No Cyanosis, No Edema, Normal Pulses Results 02/26/19 04:15 02/27/19 03:56 Lab Results Impressions Abdomen/Pelvis CT 02/25/19 23:13 IMPRESSION: Rectal wall thickening circumferentially. Please correlate for symptoms of proctitis. Hepatic cirrhosis. No evidence of renal collecting system dilatation. Cholelithiasis and biliary sludge without evidence of cholecystitis. D/ / 02/26/2019 07:05:42 Bartolo Torres / génesis Interpreting Provider: Bartolo Torres Echocardiogram 02/26/19 02:13 Impressions: LVEF 65-70%. Probable asymmetric basal septal hypertrophy. LV diastolic dysfunction. Normal right ventricular structure and function. Systolic anterior motion (NINI) of the anterior leaflet of the mitral valve is noted. Mild-moderate mitral regurgitation by Spectral Doppler. Mild increase in resting LVOT velocity without significant change with Valsalva. Mild tricuspid regurgitation. Mild pulmonic regurgitation. No pulmonary hypertension. Left Ventricular Wall Motion: Rest Echo Findings All wall segments showed normal motion. Findings: Study Quality * Technically adequate exam. ECG Findings * Normal sinus rhythm. Left Ventricle * LVEF 65-70%. * LV diastolic dysfunction. * Normal LV chamber size. * Probable asymmetric basal septal hypertrophy. Right Ventricle * Normal right ventricular structure and function. Left Atrium * Mildly dilated left atrium. Right Atrium * Normal right atrial size. Aortic Valve * No aortic regurgitation. * Trileaflet aortic valve. * Mildly calcified aortic valve leaflets. Mitral Valve * No mitral stenosis. * Mild-moderate mitral regurgitation. * Mitral valve leaflets are not fully visualized in all available images. * Systolic anterior motion (NINI) of the anterior leaflet of the mitral valve is noted. Tricuspid Valve * Normal tricuspid valve structure. * Mild tricuspid regurgitation. * Estimated RA pressure is 3 mmHg. * No pulmonary hypertension. * Estimated RVSP is 31 mmHg. Pulmonic Valve * Pulmonic valve is not well visualized. * No pulmonic stenosis. * Mild pulmonic regurgitation. Pulmonary Artery * Pulmonary artery not well visualized. Aorta * Normally sized aortic root. Pericardium * There is no pericardial effusion present. Interatrial Septum * No evidence of PFO by color Doppler. IVC * Normal IVC dimensions and inspiratory collapse. Active Medications Albuterol/Ipratropium (Duoneb) 3 ml IH [id number] PRN PRN Reason: Shortness Of Breath/Wheezing Stop: 08/28/19 02:37 Aspirin (Aspirin Ec) 81 mg PO DAILY REPLACED BY [facility] Stop: 08/29/19 09:01 Last Admin: 02/27/19 08:27 Dose: 81 mg Documented by: Heparin Sodium (Porcine) (Heparin) 4,000 unit IVP Q6HR PRN PRN Reason: SEE COMMENTS Stop: 08/28/19 00:29 Heparin Sodium (Porcine) (Heparin) 2,000 unit IVP Q6H PRN PRN Reason: SEE COMMENTS Stop: 08/28/19 00:29 Last Admin: 02/27/19 04:59 Dose: 2,000 unit Documented by: Norepinephrine Bitartrate 4 mg (/ Dextrose) 254 mls @ 30.48 mls/hr IVC CONT CATHY; Protocol Stop: 08/28/19 01:01 Last Titration: 02/26/19 17:30 Dose: 0 mcg/min, 0 mls/hr Documented by: Dexmedetomidine HCl (Precedex Premix) 400 mcg in 100 mls @ 4.128 mls/hr IVC .Q24H REPLACED BY [facility]; Protocol Stop: 08/28/19 02:31 Last Admin: 02/27/19 03:17 Dose: Not Given Documented by: Azithromycin 500 mg/ Dextrose 250 mls @ 252 mls/hr IVPB Q24H CATHY Stop: 08/29/19 03:01 Last Infusion: 02/27/19 04:56 Dose: Infused Documented by: Ceftriaxone Sodium 1,000 mg/ (Sterile Water) 10 mls @ 300 mls/hr IVPB DAILY REPLACED BY [facility] Stop: 08/28/19 09:01 Last Infusion: 02/27/19 08:29 Dose: Infused Documented by: Lactated Ringer's (Lactated Ringers) 1,000 mls @ 150 mls/hr IVC .Q6H40M REPLACED BY [facility] Stop: 08/28/19 07:46 Last Infusion: 07/29/19 09:44 Dose: Infused Documented by: Naloxone HCl (Narcan) 0.4 mg IVP Q2MPRN PRN PRN Reason: SEE COMMENTS Stop: 08/28/19 02:10 Ondansetron HCl (Zofran) 4 mg IVP Q8HR PRN PRN Reason: Nausea And Vomiting Stop: 08/28/19 02:10 Laboratory Tests 02/25/19 02/26/19 02/26/19 22:06 04:15 10:03 Creatinine 3.01 H AST 95 H ALT 53 H Troponin I 0.71 H* 0.47 H* 0.56 H* 02/26/19 02/27/19 16:40 03:56 Creatinine 0.75 AST ALT Troponin I 0.42 H* - Imaging and Cardiology Chest Xray: report reviewed Echo: report reviewed Consult Discharge Plan - Plan Referrals: NONE,PCP [Primary Care Provider] -
--- NOTE | 2019-02-27 14:38 | Electrocardiograph Report ---
[place] [id number] Test Date: 2019-02-25 Pat Name: Raheel Tomlinson Department: EXAM3 Room: [facility] Gender: M [employer]: : 1960 Requested By: Radha Marroquin Order Number: [id number] Reading MD: Cesar Gutierrez Measurements Intervals [place] Rate: 83 P: 37 ND: 146 QRS: 71 QRSD: 83 T: 32 QT: 384 QTc: 452 Interpretive Statements Sinus rhythm Nonspecific ST changes Electronically Signed On 02-27-2019 14:36:32 EDT by Cesar Gutierrez
--- NOTE | 2019-02-27 15:53 | Nephrology Progress Note ---
Date of Encounter: 02/27/19 Time of Encounter: 15:51 - Assessment and Plan (1) Acute kidney injury Current Visit: Yes Status: Acute Elevated SCr in the setting of shock likely septic requiring pressor support which is already improving, mild rhabdo, all improved. Scr .75 GFR greater than 60. UOp noted great at 5385, catheter has been d/wilmer, only 200 cc noted for today, unsure if this is accurate. Avoid nephrotoxins if possible No acute indication for BONUS CLERK at this time Urine studies noted We will sign off at this time, please reconsult if needed. F/U with PCP after discharge. (2) Rhabdomyolysis Current Visit: Yes Status: Acute Already improving Qualifiers: Rhabdomyolysis type: non-traumatic Qualified Code(s): M62.82 - Rhabdomyolysis (3) NSTEMI (non-ST elevated myocardial infarction) Current Visit: Yes Status: Acute Per cardiology (4) Shock Current Visit: Yes Status: Acute Resolved. Subjective Principal diagnosis: Elevated troponin Interval history: Pt seen and examined in ICU. Denies chest pain or shortness of breath. Denies nausea, vomiting, diarrhea. Objective - Vital Signs Vital signs: Vital Signs Temp Pulse Resp BP Pulse Ox 02/27/19 12:41 84 20 108/73 95 02/27/19 11:51 98.7 F 02/27/19 11:32 85 02/27/19 11:27 98.7 F 87 24 112/60 97 02/27/19 10:00 78 20 92 02/27/19 09:00 80 20 114/68 100 02/27/19 08:00 86 20 107/68 100 02/27/19 07:40 97.6 F 02/27/19 07:00 85 20 90/66 95 02/27/19 06:00 88 19 100/80 94 02/27/19 05:00 84 19 97/58 93 02/27/19 04:00 98.7 F 92 24 107/070 94 02/27/19 03:00 85 20 92/64 95 02/27/19 02:00 85 22 94/69 97 02/27/19 01:00 83 21 85/57 97 02/27/19 00:00 82 23 83/58 94 02/26/19 23:00 100 F H 85 20 83/59 94 02/26/19 22:00 94 20 124/99 94 02/26/19 21:00 94 18 136/69 97 02/26/19 20:00 87 18 118/84 95 02/26/19 19:00 86 23 145/64 96 02/26/19 17:47 82 14 103/58 96 02/26/19 17:00 85 14 105/70 97 02/26/19 16:16 97.1 F L 02/26/19 16:00 84 16 143/76 96 Intake and Output 02/26/19 02/27/19 02/27/19 23:59 07:59 15:59 Intake Total 1211 / 7073 1854 / 2739 885 / 2739 Output Total 1625 / 5385 200 / 200 Balance -414 / 1688 1654 / 2539 885 / 2539 Intake: IV Fluids 1211 / 7073 1374 / 2259 885 / 2259 Precedex Premix 400 mcg In 100 29 / 29 ml @ 0.2 MCG/KG/HR 4.128 mls/hr IVC .Q24H [facility]ATH[facility] Rx#:[id number] Heparin 25,000 UNIT/250 ML D5W 110 / 250 95 / 170 75 / 170 25,000 unit In 250 ml @ 12 UNIT /KG/HR 9.906 mls/hr IVC .Q24H CATHY Rx#:[id number] Levophed 4 MG In Dextrose 5% 101 / 863 250 ML @ 8 MCG/MIN 30.48 mls/hr IVC CONT [facility]ATHY Rx#:[id number] Lactated Ringers 1,000 ML @ 150 1000 / 2000 1000 / 1800 800 / 1800 mls/hr IVC .Q6H40M [facility]ATHY Rx#: [id number] Zithromax 500 MG In Dextrose 5% 250 / 250 250 ML @ 252 mls/hr IVPB Q24H [facility]ATHY Rx#:[id number] Rocephin 1,000 MG In Water for 10 10 inj. (sterile) 10 ML @ 300 mls/ hr IVPB DAILY CATHY Rx#: [id number] Oral 480 / 480 Output: Catheter 1625 / 5385 200 / 200 Other: Stool Size Small Small Stool Consistency liquid soft # Bowel Movements 1 1 Weight 83 kg Blood Glucose* 111 106 - General Appearance General appearance: Present: well-developed, well-nourished EENT: Present: ATNC, hearing intact, vision intact Neck: Present: supple Respiratory: Present: clear Cardiology: Present: no edema, normal S1, normal S2 Gastrointestinal: Present: normoactive bowel sounds, no tenderness, no guarding Integumentary: Present: no rash, warm and dry Neurologic: Present: alert and oriented x3 Musculoskeletal: Present: no deformities, no erythema Psychiatric: Present: mood/affect appropriate, cooperative - Lab 02/26/19 04:15 02/27/19 03:56 Most recent lab results 02/27/19 03:56 Calcium 8.3 L Consult Discharge Plan - Plan Referrals: NONE,PCP [Primary Care Provider] -
[2019-02-27] MEDS ORDERED: Acetaminophen/Aspirin/Caffeine TABLET PO PRN (16:02)
--- NOTE | 2019-02-27 16:15 | Electrocardiograph Report ---
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
[2019-02-27] MEDS ORDERED: Ipratropium/Albuterol Neb 3 ML IH PRN (18:30)
[2019-02-27] MEDS ORDERED: Dexmedetomidine HCl 400 MCG/100 ML MLS IVC SCH (18:30)
[2019-02-27] MEDS ORDERED: Naloxone 0.4 MG/ML INJ IVP PRN (18:30)
[2019-02-27] MEDS ORDERED: Ondansetron 4 MG/2 ML VIAL IVP PRN (18:30)
[2019-02-27] MEDS: Gabapentin 300 MG CAPSULE PO SCH (21:02)
[2019-02-28] MEDS: Ringers Solution, Lactated 1,000 ML IVC SCH ×3 (00:56→10:49)
[2019-02-28] MEDS ORDERED: Azithromycin 500 MG in D5% in Water 250 ML IVPB SCH (06:00)
[2019-02-28] MEDS: Gabapentin 300 MG CAPSULE PO SCH (07:46)
--- NOTE | 2019-02-28 08:55 | Internal Med Progress Note ---
Hospitalist Progress Note - Encounter Date of Encounter: 02/28/19 Time of Encounter: 08:55 - Exam Vitals: Temp Pulse Resp BP Pulse Ox 98.1 F 75 17 129/75 93 02/28/19 07:46 02/28/19 07:46 02/28/19 07:46 02/28/19 07:46 02/28/19 07:46 Internal Medicine: Result - Labs CBC & Chem 7: 02/26/19 04:15 02/27/19 03:56 Labs: BMP 02/27/19 03:56 Sodium 135 L Potassium 3.7 Chloride 102 Carbon Dioxide 26 BUN 30 H Creatinine 0.75 Glucose 103 Calcium 8.3 L - ABG Interpretation ABG results: PT/INR, D-dimer PT 11.0 Seconds (9.4-12.1) 02/26/19 04:15 - Impressions Impressions Retroperitoneum Ultrasound 02/27/19 16:00 IMPRESSION: 1. Ureteral jets are present. Patient unable to empty urinary bladder. 2. No hydronephrosis. D/ / Deepak Anthony MD / Deepak Anthony MD Interpreting Provider: Deepak Anthony MD Consult Discharge Plan - Plan Referrals: NONE,PCP [Primary Care Provider] -
[2019-02-28] MEDS ORDERED: Aspirin Enteric Coated 81 MG Tablet PO SCH (09:00)
[2019-02-28] MEDS ORDERED: cefTRIAXone 1,000 MG in Water for inj. (sterile) 10 ML IVPB SCH (09:00)
--- NOTE | 2019-02-28 12:04 | Discharge Summary ---
Date of Encounter: 02/28/19 Time of Encounter: 12:00 Hospital course: Dear Doctors, I recently had the opportunity to care for this patient during their recent hospital stay at [facility]. Raheel Tomilnson is a 59 M w hx mental health issues, methamphetamine use, HTN, who presented via EMS for irrational speech as well as drowsiness. Apparently the patient was found [place] to a [place] and was confused. He was brought to the emergency department and according to emergency physician he did at that time endorsed some chest pain which happened approximately 2 days ago but that resolved. He is no longer having any acute complaints. At this time he admits to marijuana use, however denies other drug use. In the ED, labs demonstrated WBC 15.7, CO2 14, BUN 86, Cr 4.51, Anion gap 21, CK 2984, Trop 0.71. Head CT unremarkable. CT abdomen showed cirrhosis but no acute changes. Post-CVC CXR demonstrated patchy bilateral infiltrates suspicious for pneumonia. In the hospital, pt soon became hypotensive requiring fluid resuscitation and initiation of pressors. Abx directed at community acquired pneumonia initiated. Placed on heparin gtt in case cardiogenic in nature. Fortunately, he quickly improved. Renal function returned to normal after 2 days, and mental status improved as well. Cardiology ordered an echo which was relatively unremarkable; hep gtt stopped and they signed off attributing elevated trop to demand ischemia. Neph signed off after rapid improvement in renal function. Pt t ransferred out of ICU where he continued to improve. Changed to PO abx and will follow up outpatient with his PCP. Dx: septic shock, acute metabolic encephalopathy, polysubstance abuse, rhabdomyolysis, acute renal failure, aspiration pneumonia, demand ischemia Pertinent tests/consults: Pulm, Cardio, Neph Follow up: PCP 1 week Tests pending: none Med changes: - new Augmentain 875 bid, #10, last dose 03/05 - new ASA 81 - new metoprolol 12.5 bid - stop hctz - stop lisinopril - stop gabapentin Mental status: awake, fully oriented Code status: Intern Architect spent on discharge: 35 minutes It has been my pleasure participating in this patient's care. Please contact me with any questions or concerns regarding their hospital stay. Sincerely, Tyrell Odell MD - Discharge Medications Prescriptions: New Aspirin Enteric Coated [Aspirin EC] 81 mg PO DAILY #30 tablet.dr Metoprolol [Lopressor] 12.5 mg PO BID #60 tablet Amoxicillin/Clavulanate [Augmentin] 875 mg PO BIDWM #10 tablet Continued Amitriptyline HCl 75 mg PO HS Discontinued Lisinopril/Hydrochlorothiazide [Zestoretic 20-25 mg Tablet] 1 tab PO DAILY Gabapentin 800 mg PO TID Home Medications: Amitriptyline HCl 75 mg PO HS 02/26/19 [History] Amoxicillin/Clavulanate [Augmentin] 875 mg PO BIDWM #10 tablet 02/28/19 [Rx] Aspirin Enteric Coated [Aspirin EC] 81 mg PO DAILY #30 tablet. 02/28/19 [Rx] Metoprolol [Lopressor] 12.5 mg PO BID #60 tablet 02/28/19 [Rx] Allergies/Adverse Reactions: Allergy/AdvReac Type Severity Reaction Status Date / Time No Known Allergies Allergy Verified 02/26/19 13:46 Date of admission: 02/26/19 01:31 Primary care physician: PCP NONE Consults: 02/26/19 01:07 Consult to Cardiology [CONS] Stat Comment: Consulting Provider: Cardiology Georige Reason for Consult: elevated troponin Time Notified: 01:07 Call Completed: Yes 02/26/19 02:13 Consult to Nephrology [CONS] Routine Consulting Provider: Kidney Georgie/ALMA/LESA/SULTANA Reason for Consult: Rhabdo, severe HAYLEE Call Completed: No 02/26/19 03:38 Consult to Pulmonology [CONS] Routine Consulting Provider: Pulm Crit Care & Sleep Miles Reason for Consult: ICU management Call Completed: No 02/27/19 11:11 Consult to Security Professionals [CONS] Routine Reason for SW Consult: poor living situation 02/28/19 10:25 Consult to Nurse Navigator [CONS] Routine Comment: pn - Constitutional Vitals: Temp Pulse Resp BP Pulse Ox 98.1 F 75 17 129/75 93 02/28/19 07:46 02/28/19 07:46 02/28/19 07:46 02/28/19 07:46 02/28/19 07:46 Exam: General: NAD, good eye contact, chronically ill appearing, disheveled Thoracic: Does have end-expiratory wheezes Cardio: regular rate and rhythm, systolic murmur Abdomen: Soft, nontender Extremities: Warm, well perfused. DP pulses 2+ b/l. No edema. Skin: extensive abrasions b/l forearms healing Neuro: Awake, fully oriented. Speech fluent - Patient Status Disposition: Home, Self-Care Condition: Fair Functional capacity at discharge: independent ambulation Overall status at discharge: patient is progressing back to baseline - Discharge Instructions Follow Up With: NONE,PCP [Primary Care Provider] - - Diet and Activity Activity: resume usual activities as tolerated (stop doing meth) Diet: advance to your usual diet
[2019-02-28 12:05] VITALS: BP 139/83
[2019-03-01] MEDS ORDERED: levoFLOXacin 500 MG TABLET PO SCH (09:00)
== END 2019-02-28 15:16 | disposition home or self-care (01) | DRG 871 ==
LOC: EMEROOARM 21:45 → SUATTDRO 02-26 01:31 → ICNU 02-26 01:31 → 2ANU 02-27 18:27
PROVIDERS: ADMIT Family Medicine; ATTEND Internal Medicine

== ENCOUNTER 2020-07-01 09:06 | Inpatient (IN) ==
[2020-07-01] MEDS ORDERED: Isovue-370 500 ML BOTTLE IVP ONE (09:35)
[2020-07-01 10:12] LABS: Red Blood Count 4.81 M/mcL (4.19-5.50); Red Cell Distribution Width 14.3 % (11.5-14.5)
[2020-07-01 10:13] LABS: Basophils # 0.1 K/mcL (0.0-0.2); Eosinophils # 0.2 K/mcL (0.0-0.6); Hematocrit 46.8 % (37.5-50.1); Hemoglobin 15.5 g/dL (12.9-16.9); Immature Granulocytes % 0.5 % (0-4); Immature Platelets 11.4 % (1.1-6.1); Lymphocytes # 1.7 K/mcL (0.6-4.6); Lymphocytes % 27.4 %; Mean Corpuscular HGB Conc 33.1 g/dL (31.6-35.5); Mean Corpuscular Hemoglobin 32.2 pg (28.0-33.3); Mean Corpuscular Volume 97.3 fL (83.0-100.0); Mean Platelet Volume 11.9 fL (9.4-12.4); Monocytes # 0.6 K/mcL (0.0-1.3); Monocytes % 10.4 %; Neutrophils # 3.6 K/mcL (1.6-8.9); Platelet Count 134 K/mcL (140-400); Segmented Neutrophils % 57.7 %; White Blood Count 6.2 K/mcL (4.3-11.1)
[2020-07-01 10:20] LABS: Amphetamine Screen,Urine Negative ng/mL (Cutoff=1000); Barbiturate Screen,Urine Negative ng/mL (Cutoff=200); Benzodiazepines Screen,Urine Negative ng/mL (Cutoff=200); Cannabinoid Screen,Urine Negative ng/mL (Cutoff = 50); Cocaine Screen,Urine Negative ng/mL (Cutoff= 300); Opiate Screen,Urine Negative ng/mL (Cutoff=300); Phencyclidine Screen,Urine Negative ng/mL (Cutoff=25)
[2020-07-01 10:32] LABS: BUN/Creatinine Ratio 10 (6-26); Blood Urea Nitrogen 8 mg/dL (8-23); Calcium 9.9 mg/dL (8.6-10.3); Carbon Dioxide 27 mEq/L (23-29); Chloride 103 mEq/L (98-107); Glucose 84 mg/dL (70-105); Osmolality,Calculated 282 (280-300); Potassium 4.1 mEq/L (3.5-5.1); Sodium 137 mEq/L (136-145); Troponin I 0.03 ng/mL (< 0.04); eGFR For African Americans > 60 (> 60); eGFR For Non-African Americans > 60 (> 60)
[2020-07-01] MEDS ORDERED: cefTRIAXone 1,000 MG in 0.9 % Sodium Chloride Mini Bag 100 ML IVPB ONE (11:48)
[2020-07-01] MEDS ORDERED: Azithromycin 500 MG in 0.9 % Sodium Chloride 250 ML IVPB ONE (11:48)
[2020-07-01] MEDS ORDERED: CefTRIAXone 1,000 MG VIAL ONE (12:28)
[2020-07-01] MEDS ORDERED: Naloxone 0.4 MG/ML INJ IVP PRN (12:47)
[2020-07-01] MEDS ORDERED: Mag Hydrox/Al Hydrox/Simeth 30 ML UDC PO PRN (12:47)
[2020-07-01] MEDS ORDERED: MOM Conc 10 ML UD.LIQ PO PRN (12:47)
[2020-07-01] MEDS ORDERED: Ondansetron 4 MG/2 ML VIAL IVP PRN (12:47)
[2020-07-01 16:24] LABS: BUN/Creatinine Ratio 11 (6-26); Blood Urea Nitrogen 8 mg/dL (8-23); Carbon Dioxide 29 mEq/L (23-29); Chloride 103 mEq/L (98-107); Glucose 80 mg/dL (70-105); Osmolality,Calculated 283 (280-300); Potassium 4.3 mEq/L (3.5-5.1); Sodium 138 mEq/L (136-145); eGFR For African Americans > 60 (> 60); eGFR For Non-African Americans > 60 (> 60)
[2020-07-01] MEDS: Furosemide 20 MG TABLET PO SCH (18:43)
[2020-07-01] MEDS: *HR* Heparin 5,000 UNIT/ML VIAL SQ SCH (18:44)
[2020-07-01] MEDS: Acetaminophen 325 MG TABLET PO PRN (19:33)
[2020-07-01 22:16] LABS: Adenovirus Not Detected (Not Detect); Bordetella Pertussis Not Detected (Not Detect); Chlamydophila pneumoniae Not Detected (Not Detect); Coronavirus 229E Not Detected (Not Detect); Coronavirus HKU1 Not Detected (Not Detect); Coronavirus NL63 Not Detected (Not Detect); Coronavirus OC43 Not Detected (Not Detect); Human Metapneumovirus Not Detected (Not Detect); Human Rhinovirus/Enterovirus Not Detected (Not Detect); Influenza A Subtype 2009 H1 Not Detected (Not Detect); Influenza B Not Detected (Not Detect); Mycoplasma pneumoniae Not Detected (Not Detect); Parainfluenza Virus 1 Not Detected (Not Detect); Parainfluenza Virus 2 Not Detected (Not Detect); Parainfluenza Virus 3 Not Detected (Not Detect); Parainfluenza Virus 4 Not Detected (Not Detect); Respiratory Syncytial Virus Not Detected (Not Detect)
[2020-07-02 03:52] LABS: Basophils # 0.1 K/mcL (0.0-0.2); Basophils % 1.1 %; Eosinophils # 0.2 K/mcL (0.0-0.6); Eosinophils % 3.6 %; Hematocrit 42.2 % (37.5-50.1); Hemoglobin 14.1 g/dL (12.9-16.9); Immature Granulocytes % 0.4 % (0-4); Lymphocytes # 1.5 K/mcL (0.6-4.6); Lymphocytes % 31.6 %; Mean Corpuscular HGB Conc 33.4 g/dL (31.6-35.5); Mean Corpuscular Volume 95.7 fL (83.0-100.0); Mean Platelet Volume 12.1 fL (9.4-12.4); Monocytes # 0.5 K/mcL (0.0-1.3); Monocytes % 9.5 %; Neutrophils # 2.5 K/mcL (1.6-8.9); Platelet Count 111 K/mcL (140-400); Red Blood Count 4.41 M/mcL (4.19-5.50); Red Cell Distribution Width 14.4 % (11.5-14.5); Segmented Neutrophils % 53.8 %; White Blood Count 4.7 K/mcL (4.3-11.1)
[2020-07-02] MEDS: *HR* Heparin 5,000 UNIT/ML VIAL SQ SCH (05:48)
[2020-07-02] MEDS: Furosemide 20 MG TABLET PO SCH (08:36)
[2020-07-02] MEDS: *HR* HYDROcodone/Acet 5/325 mg TABLET PO PRN ×3 (08:41→20:48)
[2020-07-02] MEDS ORDERED: lisinopriL 10 MG TABLET PO SCH (09:00)
[2020-07-02] MEDS ORDERED: cefTRIAXone 1,000 MG in 0.9 % Sodium Chloride Mini Bag 100 ML IVPB SCH (12:00)
[2020-07-02] MEDS ORDERED: Azithromycin 500 MG in 0.9 % Sodium Chloride 250 ML IVPB SCH (13:00)
[2020-07-02] MEDS: Pregabalin 50 MG CAPSULE PO SCH ×2 (14:49→20:15)
[2020-07-02] MEDS: lisinopriL 20 MG TABLET PO SCH (20:15)
[2020-07-03 02:16] LABS: Hematocrit 41.4 % (37.5-50.1); Hemoglobin 14.1 g/dL (12.9-16.9); Mean Corpuscular HGB Conc 34.1 g/dL (31.6-35.5); Mean Corpuscular Hemoglobin 32.6 pg (28.0-33.3); Mean Corpuscular Volume 95.8 fL (83.0-100.0); Mean Platelet Volume 12.2 fL (9.4-12.4); Platelet Count 114 K/mcL (140-400); Red Blood Count 4.32 M/mcL (4.19-5.50); Red Cell Distribution Width 14.2 % (11.5-14.5); White Blood Count 4.8 K/mcL (4.3-11.1)
[2020-07-03 02:42] LABS: BUN/Creatinine Ratio 25 (6-26); Blood Urea Nitrogen 19 mg/dL (8-23); Calcium 9.3 mg/dL (8.6-10.3); Carbon Dioxide 25 mEq/L (23-29); Chloride 105 mEq/L (98-107); Glucose 105 mg/dL (70-105); Osmolality,Calculated 287 (280-300); Potassium 3.9 mEq/L (3.5-5.1); Sodium 137 mEq/L (136-145); eGFR For African Americans > 60 (> 60); eGFR For Non-African Americans > 60 (> 60)
[2020-07-03] MEDS: *HR* HYDROcodone/Acet 5/325 mg TABLET PO PRN ×2 (03:20→09:40)
[2020-07-03 06:24] VITALS: BP 128/84
[2020-07-03] MEDS: Pregabalin 50 MG CAPSULE PO SCH (08:06)
[2020-07-03] MEDS: lisinopriL 20 MG TABLET PO SCH (08:06)
[2020-07-03] MEDS: Acetaminophen 325 MG TABLET PO PRN (08:09)
[2020-07-03] MEDS ORDERED: Furosemide 20 MG TABLET PO SCH (09:00)
[2020-07-03] MEDS ORDERED: FLU Vac QV 20-21 (6Month+)/PF 0.5 ML SYRINGE IM ONE (10:36)
== END 2020-07-03 13:25 | disposition home or self-care (01) | DRG 194 ==
LOC: EMEROOARM 09:06 → 3BNU 09:06
PROVIDERS: ADMIT Internal Medicine; ATTEND Internal Medicine